=== PATIENT | male | born 1985 | race Caucasian/White ===

== ENCOUNTER 2020-05-12 22:08 | Inpatient (IN) | payer OTHER, SELFPAY ==
[2020-05-13 01:32] VITALS: BMI 42.4
[2020-05-13] MEDS: Piperacillin/Tazobactam 4.5 GM in Sodium Chloride 0.9% 100 ML IVPB SCH ×3 (04:01→20:21)
[2020-05-13] MEDS ORDERED: Ondansetron PF 4 MG/2 ML Vial IVP PRN (04:03)
[2020-05-13] MEDS ORDERED: Ondansetron ODT 4 MG TAB PO PRN (04:03)
--- NOTE | 2020-05-13 04:16 | PDOC.HHP ---
Hospitalist HPI - History of Present Illness Right leg wound History of Present Illness: This is a 35-year-old male patient that history of diabetes mellitus with neuropathy and hypertension who was transferred from [facility] on account of diabetic foot with osteomyelitis on the right He notes having had chronic wound on the plantar surface of his right foot for the past couple of weeks however couple of days ago he noted one on the dorsum of his foot. This led him to go to the ED at [place] for further evaluation. Over the x-ray of his foot was concerning for osteomyelitis and cellulitis involving the fifth digit on the right. Also concern for septic joint involving the fifth metacarpal phalangeal joint space. There was also aeration destruction and subluxation of the fifth metacarpal phalangeal joint space. At the outside facility he was noted to be febrile, tachypneic and tachycardic. He was started on clindamycin vancomycin and cefepime prior to transfer here for higher level care. He also received 2 L normal saline. His labs showed WBC of 13.8, hemoglobin 13.3, platelets 550, sodium 135, creatinine 0.81, CRP 7.23. On presentation here he was slightly hypotensive with BP of 163/105, pulse 96, respiratory rate 18, saturation 99% on room air. On direct questioning he denies any cough chest pain shortness of breath abdominal pain dysuria frequency. He denies any pain in his right lower extremity. Hospitalist ROS - Review of Systems Constitutional: denies: fever, chills, sweats Eyes: denies: pain, vision change, conjunctivae inflammation Respiratory: denies: cough, shortness of breath, hemoptysis Cardiovascular: denies: chest pain, palpitations, orthopnea Gastrointestinal: denies: nausea, vomiting, abdominal pain, diarrhea Neurological: denies: weakness, incoordination All other systems reviewed; all pertinent +/- noted in HPI/Subj - Medication Medications: Active Medications Generic Name Dose Route Start Last Admin Trade Name Freq PRN Reason Stop Dose Admin Piperacillin Sod/Tazobactam 100 mls @ 200 mls/hr 05/13/20 04:00 05/13/20 04:01 Sod 4.5 gm/ Sodium Chloride IVPB 100 mls 0400,1200,2000 PAGE Administration Medications: Refer to ambulatory list. Allergies: No known drug allergies Hospitalist History - Past Medical History Other Medical History: Diabetes mellitus, hypertension - Past Surgical History Past Surgical History: reports: no pertinent history - Family History Family History: reports: diabetes mellitus - Social History Smoking Status: Never smoker Alcohol: reports: Occassional Living Situation: With Family - Exam General Appearance: awake alert General - other findings: Severely obese Eye: PERRL ENT: normocephalic atraumatic Heart: RRR, no murmur, no gallops, no rubs Respiratory: CTAB, no wheezes, no rales Extremities: no cyanosis, no clubbing, no edema Extremities - other findings: Right foot wound dressed. Neurological: cranial nerve grossly intact, no focal deficits Musculoskeletal: normal tone, no muscle wasting Psychiatric: normal affect, normal behavior, A&O x 3 Hospitalist H&P A/P - Plan Plan: This is a 35-year-old male patient with a history of diabetes mellitus and hypertension presenting with right diabetic foot with osteomyelitis/septic arthritis Diabetic foot ulcer Cover on Vanco and Zosyn for now Follow-up on cultures. Osteomyelitis of left foot. Continue antibiotics as above. ID consult Surgery consult Continue monitoring.Follow-up on cultures. Diabetes mellitus Standard correctional dose. Monitor glucose. Hypertension Resume home medications once verified. Obesity CODE STATUSfull code DVT prophylaxislow
[2020-05-13 05:21] LABS: SARS-CoV-2 MS2 Positive; SARS-CoV-2 N Gene Negative; SARS-CoV-2 S Gene Negative; SARS-CoV-2 by NAA Not Detected (NotDetected); SARS-CoV-2 orf1ab Negative
[2020-05-13] MEDS ORDERED: Enoxaparin Sodium 40 MG/0.4 ML SYRINGE SC SCH (09:00)
[2020-05-13] MEDS ORDERED: Vancomycin 1.5 GRAM/300 ML BAG 1.5 GM in Premix Bag 1 BAG IVPB SCH (09:00)
[2020-05-13] MEDS: Enoxaparin Sodium 40 MG/0.4 ML SYRINGE SC SCH (10:17)
[2020-05-13] MEDS ORDERED: Dextrose 50% Abboject 50 ML SYRINGE SLOW IVP PRN (16:04)
[2020-05-13] MEDS ORDERED: Dextrose 5% in Water 1,000 ML IV PRN (16:04)
[2020-05-13] MEDS: HYDROcodone/Acetaminophen 7.5/325 mg Tablet PO PRN (16:06)
--- NOTE | 2020-05-13 16:06 | PDOC.HOSPP ---
- Subjective Encounter Date: 05/13/20 Encounter Time: 11:30 Subjective: no pain in his foot, feels better - Objective Vital Signs & Weight: Vital Signs (12 hours) Temp Pulse Resp BP Pulse Ox 05/13/20 15:08 98.4 F 108 H 15 180/112 H 99 05/13/20 15:00 98.3 F 92 20 143/92 H 99 05/13/20 11:12 98.4 F 92 15 148/91 H 99 05/13/20 08:00 99 05/13/20 07:38 98.2 F 79 14 146/91 H 100 05/13/20 04:26 98.1 F 77 21 H 137/85 98 Weight Admit Weight 313 lb 0.896 oz Weight 313 lb 0.896 oz I&O: 05/12/20 05/13/20 05/14/20 06:59 06:59 06:59 Intake Total 600 Balance 600 Hospitalist ROS - Medication Medications: Active Medications Generic Name Dose Route Start Last Admin Trade Name Freq PRN Reason Stop Dose Admin Enoxaparin Sodium 40 mg 05/13/20 09:00 05/13/20 10:17 Enoxaparin Sodium 40 Mg/0.4 Ml Syringe SC 40 mg 0900 PAGE Administration Piperacillin Sod/Tazobactam 100 mls @ 200 mls/hr 05/13/20 04:00 05/13/20 13:00 Sod 4.5 gm/ Sodium Chloride IVPB 100 mls 0400,1200,2000 PAGE Administration Vancomycin HCl 2 gm/ Sodium 500 mls @ 250 mls/hr 05/13/20 06:00 05/13/20 14:55 Chloride IVPB 500 mls Q8HR PAGE Administration - Exam General Appearance: awake alert Eye: PERRL, anicteric sclera ENT: no oropharyngeal lesions, moist mucosa Neck: supple, no JVD Heart: RRR, no murmur Respiratory: no wheezes, no rales Gastrointestinal: soft, non-tender, non-distended, normal bowel sounds Extremities: no cyanosis Extremities - other findings: right forefoot in dressing, has edema++ Neurological: cranial nerve grossly intact, no focal deficits Psychiatric: normal affect, A&O x 3 Hosp A/P (1) Foot osteomyelitis, right Code(s): M86.9 - OSTEOMYELITIS, UNSPECIFIED Status: Acute Qualifiers: Osteomyelitis type: other acute Qualified Code(s): M86.171 - Other acute osteomyelitis, right ankle and foot (2) DM type 2 (diabetes mellitus, type 2) Status: Chronic Qualifiers: 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
--- NOTE | 2020-05-13 16:33 | CON ---
DATE OF CONSULTATION: 05/12/2020 CONSULTING PHYSICIAN: Sarbjit Covarrubias MD REASON FOR CONSULTATION: Diabetic foot ulcer with osteomyelitis. HISTORY OF PRESENT ILLNESS: The patient is a 35-year-old diabetic, morbidly obese, white male. He has a history of an ulcer on the plantar aspect of his foot over the past 6 months. Apparently, he has been treating this himself with dressing changes. He has not seen a physician regarding this. His primary care physician is Dr. Banuelos in [place], who else treat his diabetes, but he does not believe that she has been involved in the care of his foot. A couple of weeks ago, he noted an ulcer on the dorsal aspect of the right foot and has had progressive swelling. He presented to the emergency room in [place] for this yesterday. X-rays were obtained, revealing obvious osteomyelitis involving the head of the 5th metatarsal with destruction of the bone. He was apparently tachycardic upon arrival to the emergency room. He was given antibiotics. Cultures were obtained of the wound apparently, and I am consulted for further management. He is currently on vancomycin and piperacillin. He acknowledges that he has diabetic neuropathy, but wears closed toe shoes and is continued to do so even while he has had his ulcer. His last hemoglobin A1c that was recorded was 10.9 in 10/2019. At the time that the current hospitalist saw the patient this morning at about 11 o'clock, he was in the process of eating a late breakfast. He has therefore had solid food today and is therefore not a candidate for surgery right now. PAST MEDICAL HISTORY: 1. Morbid obesity. 2. Diabetes mellitus. 3. Hypertension. PAST SURGICAL HISTORY: None. MEDICATIONS: 1. Allopurinol. 2. Metformin. 3. He tells me that he is hypertensive, but takes no medication for this. ALLERGIES: NO KNOWN DRUG ALLERGIES. PERSONAL AND SOCIAL HISTORY: He is not and has no children. 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 He does not smoke. Drinks alcohol occasionally. He lives in his own home next to his parents' house. REVIEW OF SYSTEMS: Otherwise unremarkable. FAMILY HISTORY: Noncontributory. PHYSICAL EXAMINATION: VITAL SIGNS: His current temperature is 98.4, pulse 92, and blood pressure 140/91. GENERAL: He is a well-developed, well-nourished, morbidly obese white male, resting in bed, in no acute distress. He is alert and oriented x3. HEAD, EYES, EARS, NOSE, AND THROAT: Unremarkable. NECK: Supple without mass or tenderness. LUNGS: Clear to auscultation throughout. CARDIAC: Regular rate and rhythm without murmur. ABDOMEN: Obese, but soft and nontender. EXTREMITIES: He has palpable femoral pulses. Examination is focused on his right foot. He has a penetrating ulcer on the dorsum of the lateral aspect of his right foot, immediately overlying the 5th MTP joint. This was probed with a Q-tip, I am easily able to palpate the destructed bone underlying this. Purulence was expressed easily. There was surrounding cellulitis and swelling. LABORATORY DATA: Labs were obtained yesterday at 5:00 pm. He has minor electrolyte abnormalities. His glucose was 190. His albumin is 4.3. CBC showed a white blood cell count of 13.8 with a hemoglobin of 13.6. His drug screen was negative and his COVID test was negative. ASSESSMENT: The patient with poorly controlled diabetes mellitus, who has obvious osteomyelitis of the right 5th metatarsal and the proximal phalanx. Given the degree of destruction, he will clearly require surgery to remove this. This will be in the form of an extended ray amputation of the right foot. There is an underlying ulcer on the plantar aspect that will require debridement and excision as well as the dorsal ulcer. The wound will be left open to heal by secondary intention. Until surgery, he will continue on IV antibiotics with wound care. Job ID: [id number]
[2020-05-13] MEDS: metFORMIN 500 MG TAB PO SCH (20:22)
[2020-05-13 21:30] LABS: Vancomycin, Trough 13.8 ug/mL
[2020-05-13] MEDS: HumaLOG 300 UNITS/3 ML VIAL SC PRN (21:31)
[2020-05-14] MEDS: Piperacillin/Tazobactam 4.5 GM in Sodium Chloride 0.9% 100 ML IVPB SCH ×3 (03:25→20:30)
[2020-05-14] MEDS: HumaLOG 300 UNITS/3 ML VIAL SC PRN ×2 (05:47→20:48)
[2020-05-14 06:00] LABS: #Eosinphils 0.5 thou/uL (0.0-0.7); #Lymphocytes 1.6 thou/uL (1.20-3.40); #Monocytes 0.6 thou/uL (0.11-0.59); #Neutrophils 4.6 thou/uL (1.40-6.50); %Basophils 0.3 % (0.0-1.0); %Lymphocytes 21.6 % (21.0-51.0); %Monocytes 8.2 % (0.0-10.0); %Neutrophils 62.9 % (42.0-75.0); Hemoglobin 12.1 g/dL (14.0-18.0); Mean Corpuscular Hemoglobin 27.6 pg (27.0-31.0); Mean Corpuscular Volume 81.2 fL (78.0-98.0); Mean Platelet Volume 6.3 fL (7.4-10.4); Platelet Count 479 thou/uL (130-400); White Blood Cell (WBC) Count 7.4 thou/uL (4.8-10.8)
[2020-05-14 06:04] LABS: Hemoglobin A1c 8.8 % (4.0-6.0)
[2020-05-14 06:19] LABS: Anion Gap 14 mmol/L (10-20); BUN (Urea Nitrogen) 7 mg/dL (8.9-20.6); Calc. Creatinine Clearance 289 mL/min (70-130); Calcium 8.5 mg/dL (7.8-10.44); Carbon Dioxide 24 mmol/L (22-29); Chloride 102 mmol/L (98-107); Glucose 189 mg/dL (70-105); Potassium 4.1 mmol/L (3.5-5.1); Sodium 136 mmol/L (136-145)
[2020-05-14] MEDS: Allopurinol 100 MG TAB PO SCH (08:27)
[2020-05-14] MEDS ORDERED: PROPOFOL 200 MG/20 ML VIAL ONE (11:52)
[2020-05-14] MEDS: Enoxaparin Sodium 40 MG/0.4 ML SYRINGE SC SCH (11:53)
[2020-05-14] MEDS: metFORMIN 500 MG TAB PO SCH ×2 (11:54→20:31)
--- NOTE | 2020-05-14 14:10 | PDOC.HOSPP ---
- Subjective Encounter Date: 05/14/20 Encounter Time: 11:00 Subjective: is npo for surgery this am feels better, has no complaints - Objective Vital Signs & Weight: Vital Signs (12 hours) Temp Pulse Resp BP Pulse Ox 05/14/20 11:04 98.5 F 90 20 182/120 H 99 05/14/20 07:17 98.3 F 82 20 163/100 H 100 05/14/20 04:44 98.0 F 82 19 156/100 H 99 Weight Admit Weight 313 lb 0.896 oz Weight 313 lb 0.896 oz I&O: 05/13/20 05/14/20 05/15/20 06:59 06:59 06:59 Intake Total 600 1650 Balance 600 1650 Result Diagrams: 05/14/20 05:33 05/14/20 05:33 Additional Labs: Accuchecks 05/14/20 05/14/20 05/13/20 11:08 05:30 20:48 POC Glucose 160 H 192 H 247 H Hospitalist ROS - Medication Medications: Active Medications Generic Name Dose Route Start Last Admin Trade Name Freq PRN Reason Stop Dose Admin Hydrocodone Bitart/Acetaminophen 1 tab 05/13/20 15:39 05/13/20 16:06 Hydrocodone/Acetaminophen 7.5/325 Mg Tablet PO 1 tab Q4H PRN Administration Mild Pain (1-3) Allopurinol 100 mg 05/14/20 09:00 05/14/20 08:27 Allopurinol 100 Mg Tab PO 100 mg DAILY PAGE Administration Enoxaparin Sodium 40 mg 05/13/20 09:00 05/14/20 11:53 Enoxaparin Sodium 40 Mg/0.4 Ml Syringe SC Not Given 09 PAGE Piperacillin Sod/Tazobactam 100 mls @ 200 mls/hr 05/13/20 04:00 05/14/20 12:08 Sod 4.5 gm/ Sodium Chloride IVPB 100 mls 0400,1200,2000 PAGE Administration Vancomycin HCl 2 gm/ Sodium 500 mls @ 250 mls/hr 05/13/20 06:00 05/14/20 05:47 Chloride IVPB 500 mls Q8HR PAGE Administration Insulin Human Lispro 0 units 05/13/20 16:04 05/14/20 05:47 Humalog 300 Units/3 Ml Vial SC 2 unit .MODERATE SLIDING SC PRN Administration Moderate Correctional Scale Insulin Human Lispro 0 units 05/13/20 16:04 05/13/20 21:31 Humalog 300 Units/3 Ml Vial SC 2 unit .BEDTIME SLIDING SC PRN Administration Bedtime Correctional Scale Metformin HCl 1,000 mg 05/13/20 21:00 05/14/20 11:54 Metformin 500 Mg Tab PO Not Given BID PAGE - Exam General Appearance: awake alert Eye: PERRL, anicteric sclera ENT: no oropharyngeal lesions, moist mucosa Neck: supple, no JVD Heart: RRR, no murmur Respiratory: no wheezes, no rales Gastrointestinal: soft, non-tender, non-distended, normal bowel sounds Extremities - other findings: right foot edema+, forefoot in dressing Neurological: cranial nerve grossly intact, no focal deficits Psychiatric: normal affect, A&O x 3 Hosp A/P (1) Foot osteomyelitis, right Code(s): M86.9 - OSTEOMYELITIS, UNSPECIFIED Status: Acute Qualifiers: Osteomyelitis type: other acute Qualified Code(s): M86.171 - Other acute osteomyelitis, right ankle and foot (2) DM type 2 (diabetes mellitus, type 2) Status: Chronic Qualifiers: 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
[2020-05-14] MEDS ORDERED: Hydrochlorothiazide 25 MG TAB PO SCH (15:15)
[2020-05-14] MEDS ORDERED: NIFEdipine XL 30 MG TAB PO SCH (15:15)
[2020-05-14] MEDS ORDERED: Bupivacaine 0.25% HCL 30 ML VIAL ONE (16:05)
[2020-05-14] MEDS ORDERED: EPINEPHrine 1 MG/10 ML Abboject SYRINGE ONE (16:05)
[2020-05-14] MEDS ORDERED: EPINEPHrine 1 MG/ML AMP ONE (16:06)
[2020-05-14] MEDS ORDERED: Midazolam HCl 2 mg/2 ml Vial ONE (16:07)
[2020-05-14] MEDS ORDERED: Fentanyl 100 MCG/2 ML VIAL ONE ×2 (16:07→17:12)
[2020-05-14] MEDS ORDERED: Ondansetron HCl/PF 4 MG/2 ML Vial IVP PRN (17:04)
[2020-05-14] MEDS ORDERED: Promethazine HCl 25 MG/ML VIAL IM PRN (17:04)
[2020-05-14] MEDS ORDERED: Promethazine HCl 25 MG/ML VIAL SLOW IVP PRN (17:04)
[2020-05-14] MEDS: Metoprolol Tartrate 25 MG TAB PO SCH (20:31)
[2020-05-14] MEDS: HYDROcodone/Acetaminophen 7.5/325 mg Tablet PO PRN (20:45)
[2020-05-14 21:29] LABS: Vancomycin, Trough 29.1 ug/mL
[2020-05-15] MEDS: HYDROcodone/Acetaminophen 7.5/325 mg Tablet PO PRN ×4 (03:46→20:51)
[2020-05-15] MEDS: Piperacillin/Tazobactam 4.5 GM in Sodium Chloride 0.9% 100 ML IVPB SCH ×3 (03:46→20:51)
[2020-05-15 05:23] LABS: #Basophils 0.1 thou/uL (0.0-0.2); #Eosinphils 0.5 thou/uL (0.0-0.7); #Lymphocytes 2.1 thou/uL (1.20-3.40); #Monocytes 0.9 thou/uL (0.11-0.59); #Neutrophils 6.9 thou/uL (1.40-6.50); %Basophils 0.5 % (0.0-1.0); %Eosinophils 4.4 % (0.0-10.0); %Lymphocytes 20.4 % (21.0-51.0); %Monocytes 8.5 % (0.0-10.0); %Neutrophils 66.1 % (42.0-75.0); Mean Corpuscular HGB CONC 33.2 g/dL (32.0-36.0); Mean Corpuscular Hemoglobin 26.8 pg (27.0-31.0); Mean Corpuscular Volume 80.8 fL (78.0-98.0); Mean Platelet Volume 6.2 fL (7.4-10.4); Platelet Count 562 thou/uL (130-400); Red Blood Cell (RBC) Count 4.45 mill/uL (4.70-6.10); White Blood Cell (WBC) Count 10.4 thou/uL (4.8-10.8)
[2020-05-15 05:39] LABS: Vancomycin, Trough 10.5 ug/mL
[2020-05-15] MEDS: HumaLOG 300 UNITS/3 ML VIAL SC PRN (06:09)
[2020-05-15] MEDS: NIFEdipine XL 30 MG TAB PO SCH (08:00)
[2020-05-15] MEDS: Allopurinol 100 MG TAB PO SCH (08:01)
[2020-05-15] MEDS: metFORMIN 500 MG TAB PO SCH ×2 (08:01→20:51)
[2020-05-15] MEDS: Metoprolol Tartrate 25 MG TAB PO SCH ×2 (08:02→20:51)
[2020-05-15] MEDS: Hydrochlorothiazide 25 MG TAB PO SCH (08:02)
[2020-05-15] MEDS: Enoxaparin Sodium 40 MG/0.4 ML SYRINGE SC SCH (08:02)
--- NOTE | 2020-05-15 13:39 | PDOC.HOSPP ---
- Subjective Encounter Date: 05/15/20 Encounter Time: 11:15 Subjective: no pain in his foot, feels better - Objective Vital Signs & Weight: Vital Signs (12 hours) Temp Pulse Resp BP Pulse Ox 05/15/20 11:12 98.4 F 78 18 148/84 H 96 05/15/20 08:00 73 05/15/20 07:05 98.0 F 73 18 157/94 H 97 05/15/20 03:40 98.1 F 82 19 149/88 H 98 Weight Admit Weight 313 lb 0.896 oz Weight 313 lb 0.896 oz I&O: 05/14/20 05/15/20 05/16/20 06:59 06:59 06:59 Intake Total 1650 2650 Output Total 2600 Balance 1650 50 Result Diagrams: 05/15/20 05:09 05/14/20 05:33 Additional Labs: Accuchecks 05/15/20 05/15/20 05/14/20 11:15 05:32 15:24 POC Glucose 213 H 214 H 142 H Hospitalist ROS - Medication Medications: Active Medications Generic Name Dose Route Start Last Admin Trade Name Freq PRN Reason Stop Dose Admin Hydrocodone Bitart/Acetaminophen 1 tab 05/13/20 15:39 05/15/20 08:00 Hydrocodone/Acetaminophen 7.5/325 Mg Tablet PO 1 tab Q4H PRN Administration Mild Pain (1-3) Allopurinol 100 mg 05/14/20 09:00 05/15/20 08:01 Allopurinol 100 Mg Tab PO 100 mg DAILY PAGE Administration Enoxaparin Sodium 40 mg 05/13/20 09:00 05/15/20 08:02 Enoxaparin Sodium 40 Mg/0.4 Ml Syringe SC 40 mg 09 PAGE Administration Hydrochlorothiazide 25 mg 05/15/20 09:00 05/15/20 08:02 Hydrochlorothiazide 25 Mg Tab PO 25 mg DAILY PAGE Administration Piperacillin Sod/Tazobactam 100 mls @ 200 mls/hr 05/13/20 04:00 05/15/20 03:46 Sod 4.5 gm/ Sodium Chloride IVPB 100 mls 0400,1200,2000 PAGE Administration Vancomycin HCl 2 gm/ Sodium 500 mls @ 250 mls/hr 05/15/20 06:00 05/15/20 06:09 Chloride IVPB 500 mls Q8HR PAGE Administration Insulin Human Lispro 0 units 05/13/20 16:04 05/15/20 06:09 Humalog 300 Units/3 Ml Vial SC 4 unit .MODERATE SLIDING SC PRN Administration Moderate Correctional Scale Insulin Human Lispro 0 units 05/13/20 16:04 05/14/20 20:48 Humalog 300 Units/3 Ml Vial SC 2 unit .BEDTIME SLIDING SC PRN Administration Bedtime Correctional Scale Metformin HCl 1,000 mg 05/13/20 21:00 05/15/20 08:01 Metformin 500 Mg Tab PO 1,000 mg BID PAGE Administration Metoprolol Tartrate 25 mg 05/14/20 21:00 05/15/20 08:02 Metoprolol Tartrate 25 Mg Tab PO 25 mg BID PAGE Administration Nifedipine 30 mg 05/15/20 09:00 05/15/20 08:00 Nifedipine Xl 30 Mg Tab PO 30 mg DAILY PAGE Administration - Exam General Appearance: awake alert Eye: PERRL, anicteric sclera ENT: no oropharyngeal lesions, moist mucosa Neck: supple, no JVD Heart: RRR, no murmur Respiratory: no wheezes, no rales Gastrointestinal: soft, non-tender, non-distended, normal bowel sounds Extremities - other findings: right foot in dressing Neurological: cranial nerve grossly intact, no focal deficits Psychiatric: normal affect, A&O x 3 Hosp A/P (1) Foot osteomyelitis, right Code(s): M86.9 - OSTEOMYELITIS, UNSPECIFIED Status: Acute Qualifiers: Osteomyelitis type: other acute Qualified Code(s): M86.171 - Other acute osteomyelitis, right ankle and foot (2) DM type 2 (diabetes mellitus, type 2) Status: Chronic Qualifiers: 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: without termite treater helper use Diabetes mellitus complication status: with hyperglycemia Qualified Code(s): E11.65 - Type 2 diabetes mellitus with hyperglycemia (3) Obesity Code(s): E66.9 - OBESITY, UNSPECIFIED Status: Chronic Qualifiers: Obesity classification: adult class 3 (BMI >= 40) Body mass index: BMI 40.0-44.9 (4) HTN (hypertension) Code(s): I10 - ESSENTIAL (PRIMARY) HYPERTENSION Status: Chronic Qualifiers: Hypertension type: essential hypertension Qualified Code(s): I10 - Essential (primary) hypertension - Plan is on vanc and zosyn, home dose metformin 1g bid with coverage, will add glipizide 5mg bid is s/p ray amp of 5th toe and metatarsal 05/14/20 add hctz, procardia xl, cozaar and lopressor for htn strict 1800 kcal ada diet continue wound care, elevation of right leg to reduce edema hemostable no cultures were obtained, likely augmentin bid for dc plan x 10 days
--- NOTE | 2020-05-15 17:47 | CON ---
DATE OF CONSULTATION: 05/15/2020 REASON FOR CONSULTATION: Right foot infection. HISTORY OF PRESENT ILLNESS: A 35-year-old with history of type 2 diabetes and chronic ulcer in the right lateral forefoot for the past few weeks, measuring about 2.5 x 1 cm. He developed worsening inflammatory changes with swelling and pain, and on arrival, he was hypertensive and tachycardic with a temperature of 100.8 and O2 saturations were 90%. The exam showed normal lungs and heart exam except for tachycardia and there was evidence of neuropathy in lower extremities and swelling of the right foot, a large ulcer present in the dorsal aspect of the foot and there was exposed bone at the base of this ulcer. Also, there was an ulceration in the plantar aspect of the foot around the 5th metatarsal skin. Other findings included a white cell count 7.4, hemoglobin 12, and platelets 479. His creatinine was 0.73. SARS-CoV PCR negative. There was a chest x-ray, which showed no infiltrates. A foot x-ray on admission with subcutaneous emphysema in 5th digit erosion at the 5th metacarpophalangeal joint space. The patient underwent amputation today. Dr. Wood was the consulting surgeon. Currently, Mr. Sutton is feeling better. He denies any headaches, visual symptoms, sore throat, odynophagia, or dysphagia. Mild cough. No back pain. No abdominal pain or diarrhea. Voiding without difficulty. No bleeding. PAST MEDICAL HISTORY: 1. Type 2 diabetes. 2. Obesity. 3. Neuropathy. 4. Gout. SOCIAL HISTORY: Lives in [place]. Drinks occasionally. Never smoker. ALLERGIES: NONE. CURRENT MEDICATIONS: 1. Allopurinol. 2. Glucagon. 3. Zosyn. 4. Vancomycin. FAMILY HISTORY: Type 2 diabetes. PHYSICAL EXAMINATION: VITAL SIGNS: Afebrile since admission, BP 140/72, heart rate 76, respiratory rate 18, and O2 saturation 98 on room air. SKIN: The area of inflammatory change at the 5th digit and metacarpophalangeal site with erythema extending towards the dorsal aspect of the forefoot and midfoot region with ulceration around the lateral aspect in the volar aspect of this area. Today, the wound shows the area of amputation is white, gaping area of wound with the missing toe in the metatarsophalangeal joint amputation. No lymphadenopathy. HEENT: Ocular movements conjugate. Oral cavity normal. Numerous teeth in place in fairly good shape. NECK: Supple. LUNGS: Symmetric, clear breath sounds. HEART: S1 and S2. Regular rate. ABDOMEN: Soft, not distended or tender. No ascites. No bladder distention. EXTREMITIES: No joint inflammatory activity outside the involved area. Pulses are 1+ in dorsalis pedis, actually more like 2+. Popliteals are 1+. Cap refill is normal. NEUROLOGIC: Cognitive function appears to be intact. Neuro examination otherwise nonfocal. LABORATORY STUDIES: Followup WBC 10.4, hemoglobin 12, and platelets 562. Microbiology with group B strep and Staphylococcus aureus with pending susceptibility results, this from 2 different samples. ASSESSMENT: 1. Type 2 diabetes. 2. Neuropathy with chronic ulcer in the right lateral forefoot, status post amputation at the 5th ray with the organisms as described above. Assuming adequate margin and in the face of adequate blood supply, he would be eligible for discharge on oral antimicrobial therapy, hoping that the Staphylococcus aureus is not methicillin-resistant. In that case, a combination of Keflex and rifampin for approximately 3 weeks or longer depending on granulation of the site. If MRSA is identified, then that would complicate things a little bit and the regimen would depend on the susceptibility to quinolones. In that case, a combination of levofloxacin and rifampin would be the chosen regimen. If it is not susceptible and it is MRSA, then the options for management would be more limited and may require IV access for outpatient therapy. Job ID: [id number] [facility]
[2020-05-15] MEDS: glipiZIDE 5 MG TAB PO SCH (18:07)
[2020-05-16] MEDS: HYDROcodone/Acetaminophen 7.5/325 mg Tablet PO PRN ×2 (03:04→19:49)
[2020-05-16] MEDS: Piperacillin/Tazobactam 4.5 GM in Sodium Chloride 0.9% 100 ML IVPB SCH ×3 (03:05→19:49)
[2020-05-16 05:58] LABS: Anion Gap 17 mmol/L (10-20); BUN (Urea Nitrogen) 12 mg/dL (8.9-20.6); Calc. Creatinine Clearance 207 mL/min (70-130); Calcium 9.6 mg/dL (7.8-10.44); Carbon Dioxide 26 mmol/L (22-29); Chloride 96 mmol/L (98-107); Glucose 189 mg/dL (70-105); Potassium 3.8 mmol/L (3.5-5.1); Sodium 135 mmol/L (136-145); Vancomycin, Trough 20.7 ug/mL
[2020-05-16] MEDS: glipiZIDE 5 MG TAB PO SCH ×2 (06:26→16:25)
[2020-05-16] MEDS: HumaLOG 300 UNITS/3 ML VIAL SC PRN ×2 (06:26→16:25)
[2020-05-16] MEDS: NIFEdipine XL 30 MG TAB PO SCH (09:19)
[2020-05-16] MEDS: Enoxaparin Sodium 40 MG/0.4 ML SYRINGE SC SCH (09:19)
[2020-05-16] MEDS: Hydrochlorothiazide 25 MG TAB PO SCH (09:20)
[2020-05-16] MEDS: Losartan 25 MG TAB PO SCH (09:20)
[2020-05-16] MEDS: Metoprolol Tartrate 25 MG TAB PO SCH ×2 (09:20→19:49)
[2020-05-16] MEDS: metFORMIN 500 MG TAB PO SCH ×2 (09:20→19:49)
[2020-05-16] MEDS: Allopurinol 100 MG TAB PO SCH (09:20)
[2020-05-16] MEDS ORDERED: Vancomycin HCl 1.75 GM in Sodium Chloride 0.9% 500 ML IVPB SCH (14:00)
--- NOTE | 2020-05-16 14:21 | PDOC.HOSPP ---
- Subjective Encounter Date: 05/16/20 Encounter Time: 11:20 Subjective: feels good, has wound vac placed to his foot - Objective Vital Signs & Weight: Vital Signs (12 hours) Temp Pulse Resp BP BP Pulse Ox 05/16/20 11:37 98.4 F 81 18 148/92 H 97 05/16/20 09:19 72 126/83 05/16/20 08:00 98 05/16/20 07:28 97.9 F 72 16 126/83 99 05/16/20 05:44 97.8 F 92 19 123/74 96 Weight Admit Weight 313 lb 0.896 oz Weight 313 lb 0.896 oz I&O: 05/15/20 05/16/20 05/17/20 06:59 06:59 06:59 Intake Total 2650 3200 Output Total 2600 Balance 50 3200 Result Diagrams: 05/15/20 05:09 05/16/20 05:17 Additional Labs: Accuchecks 05/16/20 05/15/20 05/14/20 05:37 16:11 20:48 POC Glucose 180 H 143 H 211 H Hospitalist ROS - Medication Medications: Active Medications Generic Name Dose Route Start Last Admin Trade Name Freq PRN Reason Stop Dose Admin Hydrocodone Bitart/Acetaminophen 1 tab 05/13/20 15:39 05/16/20 03:04 Hydrocodone/Acetaminophen 7.5/325 Mg Tablet PO 1 tab Q4H PRN Administration Mild Pain (1-3) Allopurinol 100 mg 05/14/20 09:00 05/16/20 09:20 Allopurinol 100 Mg Tab PO 100 mg DAILY PAGE Administration Enoxaparin Sodium 40 mg 05/13/20 09:00 05/16/20 09:19 Enoxaparin Sodium 40 Mg/0.4 Ml Syringe SC 40 mg 09 PAGE Administration Glipizide 5 mg 05/15/20 16:30 05/16/20 06:26 Glipizide 5 Mg Tab PO 5 mg BID-AC PAGE Administration Hydrochlorothiazide 25 mg 05/15/20 09:00 05/16/20 09:20 Hydrochlorothiazide 25 Mg Tab PO 25 mg DAILY PAGE Administration Piperacillin Sod/Tazobactam 100 mls @ 200 mls/hr 05/13/20 04:00 05/16/20 13:32 Sod 4.5 gm/ Sodium Chloride IVPB 100 mls 0400,1200,2000 PAGE Administration Insulin Human Lispro 0 units 05/13/20 16:04 05/16/20 06:26 Humalog 300 Units/3 Ml Vial SC 2 unit .MODERATE SLIDING SC PRN Administration Moderate Correctional Scale Insulin Human Lispro 0 units 05/13/20 16:04 05/14/20 20:48 Humalog 300 Units/3 Ml Vial SC 2 unit .BEDTIME SLIDING SC PRN Administration Bedtime Correctional Scale Losartan Potassium 50 mg 05/16/20 09:00 05/16/20 09:20 Losartan 25 Mg Tab PO 50 mg DAILY PAGE Administration Metformin HCl 1,000 mg 05/13/20 21:00 05/16/20 09:20 Metformin 500 Mg Tab PO 1,000 mg BID PAGE Administration Metoprolol Tartrate 25 mg 05/14/20 21:00 05/16/20 09:20 Metoprolol Tartrate 25 Mg Tab PO 25 mg BID PAGE Administration Nifedipine 30 mg 05/15/20 09:00 05/16/20 09:19 Nifedipine Xl 30 Mg Tab PO 30 mg DAILY PAGE Administration - Exam General Appearance: awake alert Eye: PERRL, anicteric sclera ENT: no oropharyngeal lesions, moist mucosa Neck: supple, no JVD Heart: RRR, no murmur Respiratory: no wheezes, no rales Gastrointestinal: soft, non-tender, non-distended, normal bowel sounds Extremities - other findings: right foot surg wound in wound vac Neurological: cranial nerve grossly intact, no focal deficits Psychiatric: normal affect, A&O x 3 Hosp A/P (1) Foot osteomyelitis, right Code(s): M86.9 - OSTEOMYELITIS, UNSPECIFIED Status: Acute Qualifiers: Osteomyelitis type: other acute Qualified Code(s): M86.171 - Other acute osteomyelitis, right ankle and foot (2) DM type 2 (diabetes mellitus, type 2) Status: Chronic Qualifiers: Diabetes mellitus manager long term care insulin use: without manager long term care use Diabetes mellitus complication status: with hyperglycemia Qualified Code(s): E11.65 - Type 2 diabetes mellitus with hyperglycemia (3) Obesity Code(s): E66.9 - OBESITY, UNSPECIFIED Status: Chronic Qualifiers: Obesity classification: adult class 3 (BMI >= 40) Body mass index: BMI 40.0-44.9 (4) HTN (hypertension) Code(s): I10 - ESSENTIAL (PRIMARY) HYPERTENSION Status: Chronic Qualifiers: Hypertension type: essential hypertension Qualified Code(s): I10 - Essential (primary) hypertension - Plan is on vanc and zosyn, home dose metformin 1g bid with coverage, plus glipizide 5mg bid is s/p ray amp of 5th toe and metatarsal 05/14/20 on hctz, procardia xl, cozaar and lopressor for htn strict 1800 kcal ada diet continue wound care, elevation of right leg to reduce edema hemostable cultures results and per adv pt to go on keflex and rifampin for 3 weeks will need wound vac/wound care or he can drive to [facility] for wound care (lives 8 miles from hospital)
[2020-05-17] MEDS: HYDROcodone/Acetaminophen 7.5/325 mg Tablet PO PRN ×2 (03:54→20:35)
[2020-05-17] MEDS: Piperacillin/Tazobactam 4.5 GM in Sodium Chloride 0.9% 100 ML IVPB SCH ×3 (03:55→20:32)
[2020-05-17] MEDS: HumaLOG 300 UNITS/3 ML VIAL SC PRN ×3 (06:09→17:13)
[2020-05-17] MEDS: glipiZIDE 5 MG TAB PO SCH ×2 (06:09→17:12)
[2020-05-17] MEDS: Hydrochlorothiazide 25 MG TAB PO SCH (09:19)
[2020-05-17] MEDS: Enoxaparin Sodium 40 MG/0.4 ML SYRINGE SC SCH (09:19)
[2020-05-17] MEDS: Allopurinol 100 MG TAB PO SCH (09:19)
[2020-05-17] MEDS: Losartan 25 MG TAB PO SCH (09:19)
[2020-05-17] MEDS: Metoprolol Tartrate 25 MG TAB PO SCH ×2 (09:19→20:39)
[2020-05-17] MEDS: NIFEdipine XL 30 MG TAB PO SCH (09:25)
[2020-05-17] MEDS: metFORMIN 500 MG TAB PO SCH ×2 (09:25→20:39)
--- NOTE | 2020-05-17 09:42 | PRG ---
DATE OF SERVICE: 05/17/2020 SUBJECTIVE: Mr. Sutton is postoperative day #3 from a right 5th toe ray amputation. He had osteomyelitis of the head of the fifth metatarsal. Wound VAC has been placed and is intact. It apparently has been changed and is due to be changed today. He has worked with Physical Therapy and is ambulating with crutches. He does not yet have a home wound VAC or home health nursing arranged. This will probably be challenging as he is uninsured. He has no complaints. OBJECTIVE: VITAL SIGNS: He is afebrile. Vital signs are normal except he has his baseline hypertension. SKIN: Wound VAC is intact on his right foot. LABORATORY DATA: His electrolytes from yesterday are unremarkable. His blood sugars remain baseline elevated. He has not had a CBC checked in the last couple of days. ASSESSMENT: The patient is stable following ray amputation of right 5th toe. He is due to have his VAC changed today. I will hopefully see the wound with the Wound Care team this morning. Home wound VAC has been ordered and case management is involved. As soon as appropriate wound care can be arranged, he can be discharged at any time. Since all infected tissue was removed, he should not require long-term antibiotics. There is no longer concern for osteomyelitis that needs to be treated. Job ID: [id number]
--- NOTE | 2020-05-17 16:04 | PDOC.HOSPP ---
- Subjective Encounter Date: 05/17/20 Encounter Time: 08:45 Subjective: no new complaints, feels good - Objective Vital Signs & Weight: Vital Signs (12 hours) Temp Pulse Resp BP Pulse Ox 05/17/20 10:30 98.4 F 79 18 153/87 H 97 05/17/20 09:25 70 05/17/20 08:00 99 05/17/20 07:07 97.9 F 70 18 142/92 H 99 Weight Admit Weight 313 lb 0.896 oz Weight 313 lb 0.896 oz I&O: 05/16/20 05/17/20 05/18/20 06:59 06:59 06:59 Intake Total 3200 1050 Output Total 1000 Balance 3200 50 Result Diagrams: 05/15/20 05:09 05/16/20 05:17 Additional Labs: Accuchecks 05/17/20 05/17/20 05/17/20 15:36 10:33 05:13 POC Glucose 173 H 201 H 169 H 05/16/20 05/16/20 20:09 16:19 POC Glucose 166 H 206 H Hospitalist ROS - Medication Medications: Active Medications Generic Name Dose Route Start Last Admin Trade Name Freq PRN Reason Stop Dose Admin Hydrocodone Bitart/Acetaminophen 1 tab 05/13/20 15:39 05/17/20 03:54 Hydrocodone/Acetaminophen 7.5/325 Mg Tablet PO 1 tab Q4H PRN Administration Mild Pain (1-3) Allopurinol 100 mg 05/14/20 09:00 05/17/20 09:19 Allopurinol 100 Mg Tab PO 100 mg DAILY PAGE Administration Enoxaparin Sodium 40 mg 05/13/20 09:00 05/17/20 09:19 Enoxaparin Sodium 40 Mg/0.4 Ml Syringe SC 40 mg 09 PAGE Administration Glipizide 5 mg 05/15/20 16:30 05/17/20 06:09 Glipizide 5 Mg Tab PO 5 mg BID-AC PAGE Administration Hydrochlorothiazide 25 mg 05/15/20 09:00 05/17/20 09:19 Hydrochlorothiazide 25 Mg Tab PO 25 mg DAILY PAGE Administration Piperacillin Sod/Tazobactam 100 mls @ 200 mls/hr 05/13/20 04:00 05/17/20 11:58 Sod 4.5 gm/ Sodium Chloride IVPB 100 mls 0400,1200,2000 PAGE Administration Insulin Human Lispro 0 units 05/13/20 16:04 05/17/20 12:01 Humalog 300 Units/3 Ml Vial SC 4 unit .MODERATE SLIDING SC PRN Administration Moderate Correctional Scale Insulin Human Lispro 0 units 05/13/20 16:04 05/14/20 20:48 Humalog 300 Units/3 Ml Vial SC 2 unit .BEDTIME SLIDING SC PRN Administration Bedtime Correctional Scale Losartan Potassium 50 mg 05/16/20 09:00 05/17/20 09:19 Losartan 25 Mg Tab PO 50 mg DAILY PAGE Administration Metformin HCl 1,000 mg 05/13/20 21:00 05/17/20 09:25 Metformin 500 Mg Tab PO 1,000 mg BID PAGE Administration Metoprolol Tartrate 25 mg 05/14/20 21:00 05/17/20 09:19 Metoprolol Tartrate 25 Mg Tab PO 25 mg BID PAGE Administration Nifedipine 30 mg 05/15/20 09:00 05/17/20 09:25 Nifedipine Xl 30 Mg Tab PO 30 mg DAILY PAGE Administration - Exam General Appearance: awake alert Eye: PERRL, anicteric sclera ENT: no oropharyngeal lesions, moist mucosa Neck: supple, no JVD Heart: RRR, no murmur Respiratory: no wheezes, no rales Gastrointestinal: soft, non-tender, non-distended, normal bowel sounds Extremities: no cyanosis Extremities - other findings: right foot surgical wound in wound vac Neurological: cranial nerve grossly intact, no focal deficits Psychiatric: normal affect, A&O x 3 Hosp A/P (1) Foot osteomyelitis, right Code(s): M86.9 - OSTEOMYELITIS, UNSPECIFIED Status: Acute Qualifiers: Osteomyelitis type: other acute Qualified Code(s): M86.171 - Other acute osteomyelitis, right ankle and foot (2) DM type 2 (diabetes mellitus, type 2) Status: Chronic Qualifiers: Diabetes mellitus nursing home insulin use: without long term care pharmacist use Diabetes me llitus complication status: with hyperglycemia Qualified Code(s): E11.65 - Type 2 diabetes mellitus with hyperglycemia (3) Obesity Code(s): E66.9 - OBESITY, UNSPECIFIED Status: Chronic Qualifiers: Obesity classification: adult class 3 (BMI >= 40) Body mass index: BMI 40.0-44.9 (4) HTN (hypertension) Code(s): I10 - ESSENTIAL (PRIMARY) HYPERTENSION Status: Chronic Qualifiers: Hypertension type: essential hypertension Qualified Code(s): I10 - Essential (primary) hypertension - Plan is on vanc and zosyn, home dose metformin 1g bid with coverage, plus glipizide 5mg bid is s/p ray amp of 5th toe and metatarsal 05/14/20 on hctz, procardia xl, cozaar and lopressor for htn strict 1800 kcal ada diet continue wound care, elevation of right leg to reduce edema hemostable cultures results and per adv pt to go on keflex and rifampin for 3 weeks will need wound vac/wound care or he can drive to [facility] for wound care (lives 8 miles from hospital), awaiting approval, may dc anytime if its arranged.
--- NOTE | 2020-05-17 19:36 | OP ---
DATE OF PROCEDURE: 05/14/2020 PREOPERATIVE DIAGNOSIS: Infected right lateral foot ulcer with fifth metatarsal head osteomyelitis. POSTOPERATIVE DIAGNOSIS: Infected right lateral foot ulcer with fifth metatarsal head osteomyelitis. OPERATION PERFORMED: Right fifth toe ray amputation. ANESTHESIA: General anesthesia with the laryngeal mask airway. INDICATIONS: Patient is a 35-year-old morbidly obese, diabetic white male. He had presented to the hospital with a draining ulcer on the lateral aspect of his foot. This had both a plantar and dorsal component. Purulence was expressed from this. X-rays reveal complete osteolysis of the head of the fifth metatarsal. He is taken to the operating room at this time for ray amputation. DESCRIPTION OF OPERATION: Informed consent was obtained. Patient was taken to the operating room, where general anesthesia was obtained with patient in supine position. The right foot and lower leg were prepped with Betadine, draped in sterile fashion. Local anesthetic was infiltrated around the proximal aspect of the intended amputation site using 0.25% Marcaine with epinephrine. An incision was created to include the fifth toe as well as the ulcer on the plantar and dorsal aspect. Dissection was carried through skin and subcutaneous tissue and down to the fifth metatarsal. Purulent and necrotic tissue were encountered. The specimen was passed off the field. The underlying fifth metatarsal bone was debrided with the rongeur until viable strong normal bone was encountered. All surrounding necrotic and devitalized tissue were also removed with rongeur. Meticulous hemostasis obtained with electrocautery. The wound was irrigated with saline. Dry gauze dressing was placed externally and Kerlix gauze and Milton wrap dressing was applied. There were no complications. The patient tolerated the procedure well, was taken to the recovery room in stable condition. Job ID: [id number]
[2020-05-18] MEDS: Piperacillin/Tazobactam 4.5 GM in Sodium Chloride 0.9% 100 ML IVPB SCH ×2 (03:30→11:56)
[2020-05-18] MEDS: glipiZIDE 5 MG TAB PO SCH (06:27)
[2020-05-18] MEDS: Enoxaparin Sodium 40 MG/0.4 ML SYRINGE SC SCH (08:37)
[2020-05-18] MEDS: metFORMIN 500 MG TAB PO SCH (08:38)
[2020-05-18] MEDS: Hydrochlorothiazide 25 MG TAB PO SCH (08:38)
[2020-05-18] MEDS: Losartan 25 MG TAB PO SCH (08:38)
[2020-05-18] MEDS: Allopurinol 100 MG TAB PO SCH (08:39)
[2020-05-18] MEDS: NIFEdipine XL 30 MG TAB PO SCH (08:39)
[2020-05-18] MEDS: Metoprolol Tartrate 25 MG TAB PO SCH (08:39)
[2020-05-18] MEDS: HumaLOG 300 UNITS/3 ML VIAL SC PRN (11:59)
[2020-05-18 12:51] VITALS: TEMP 98.7
[2020-05-18 16:24] VITALS: BP 172/95
--- NOTE | 2020-05-18 16:59 | DIS ---
DATE OF ADMISSION: 05/12/2020 DATE OF DISCHARGE: 05/18/2020 DISCHARGE DISPOSITION: To home. PRIMARY DISCHARGE DIAGNOSIS: The patient is status post right 5th toe ray amputation for osteomyelitis done on 05/14/[address] Wood. SECONDARY DISCHARGE DIAGNOSES: 1. Hypertension, uncontrolled, which was resolved. 2. Diabetes mellitus, type 2, uncontrolled, which was resolved. 3. Obesity. PROCEDURES DONE DURING HOSPITALIZATION: The patient has had ray amputation of 5th toe on the right foot for osteomyelitis. Right foot x-ray done on admission showed findings of osteomyelitis and cellulitis involving the 5th digit. There is also a presumed septic joint involving 5th metatarsophalangeal joint space. There is erosion, destruction, and subluxation of the 5th metatarsophalangeal joint space. Chest x-ray done showed no acute cardiopulmonary abnormalities. Wound cultures grew Strep agalactiae and Staph aureus. Staphylococcus aureus was resistant to amoxicillin and Zosyn, but sensitive to all other organism. Blood cultures x2, no growth. H and H 12 and 36, platelet count 562, and white count of 10. BUN 12, creatinine 1.0. HbA1c 8.8. CRP 7.23, TSH 1.86. COVID-19 PCR was not detected on 05/13/2020. Urine drug screen was negative. DISCHARGE MEDICATIONS: 1. Allopurinol 100 mg p.o. daily. 2. Losartan 50 mg p.o. daily. 3. Glipizide 5 mg twice daily. 4. Metformin 1000 mg twice daily. 5. Hydrochlorothiazide 25 mg daily. 6. Lopressor 25 mg twice daily. 7. Motrin p.r.n. for pain. 8. Rifampin 300 mg p.o. twice daily for 10 days. 9. Keflex 500 mg p.o. 4 times daily for 10 days. ALLERGIES: NO KNOWN DRUG ALLERGIES. DISCHARGE PLAN: The patient to follow up with his primary care physician, Dr. Richmond in 1 week. He needs to follow up with Dr. Wood in 2 weeks. The patient needs to follow up Wound Care at [facility] in [place] at the earliest. BRIEF COURSE DURING HOSPITALIZATION: The patient initially got admitted on the 8th after being diagnosed with osteomyelitis. He initially went to [facility] where initial workup was done, which showed findings of right 5th toe and metatarsal osteomyelitis. The patient has had a wound on the right 5th toe area for nearly 2 weeks, which has been progressively smoldering with progressive swelling and purulent discharge. He was evaluated by Dr. Wood for General Surgery. The patient had a 5th toe ray amputation done on the right side by Dr. Wood on the . Postop, his wound was placed in wound VAC and surgical shoe. Wound care has been arranged at [facility] closer to his home. Case Management was consulted for above, which has been arranged. His medications were optimized for diabetes and hypertension, both of which were uncontrolled on admission. The patient was also counseled regarding losing weight and healthy eating. He is hemodynamically stable and will be shortly discharged home. Please note, I have seen and examined the patient on the day of discharge. Job ID: [id number]
== END 2020-05-18 16:24 | disposition home or self-care (01) | DRG 617 ==
LOC: SURG B 22:08
PROVIDERS: ADMIT Student in an Organized Health Care Education/Training Program; ATTEND Internal Medicine
PROC: 0Y6X0Z1 Detachment at Right 5th Toe, High, Open Approach (ICD-10-PCS; principal; 2020-05-14)
DX: E11.69 Type 2 diabetes mellitus with other specified complication (principal); E11.52 Type 2 diabetes mellitus with diabetic peripheral angiopathy with gangrene; M86.172 Other acute osteomyelitis, left ankle and foot; Z68.41 Body mass index [BMI] 40.0-44.9, adult; I96 Gangrene, not elsewhere classified; Z16.11 Resistance to penicillins; Z20.822 Contact with and (suspected) exposure to COVID-19; E11.621 Type 2 diabetes mellitus with foot ulcer; I10 Essential (primary) hypertension; L97.529 Non-pressure chronic ulcer of other part of left foot with unspecified severity; E66.01 Morbid (severe) obesity due to excess calories; E11.65 Type 2 diabetes mellitus with hyperglycemia; B95.4 Other streptococcus as the cause of diseases classified elsewhere; B95.62 Methicillin resistant Staphylococcus aureus infection as the cause of diseases classified elsewhere; Z79.84 Long term (current) use of oral hypoglycemic drugs; Z79.899 Other long term (current) drug therapy
CPT/HCPCS: 36415; 36416; 80048; 80202; 83036; 85025; 87635; 88305; 88311; J0171; J1650; J2250; J2543; J2704; J3010; J3370; J3490; J7030; S0020; U0003

== ENCOUNTER 2025-03-16 14:27 | Inpatient (IN) | payer OTHER, SELFPAY ==
[2025-03-16 15:23] LABS: Hematocrit 30.8 % (42.0-52.0); Hemoglobin 10.0 g/dL (14.0-18.0); Mean Corpuscular Hemoglobin 24.7 pg (27.0-31.0); Mean Corpuscular Volume 76.0 fL (78.0-98.0); Platelet Count 523 10x3/uL (130-400); Red Blood Cell (RBC) Count 4.05 mill/uL (4.70-6.10); White Blood Cell (WBC) Count 25.11 10x3/uL (4.8-10.8)
[2025-03-16] MEDS ORDERED: Dextrose 50% Abboject 50 ML SYRINGE SLOW IVP PRN (15:28)
[2025-03-16] MEDS ORDERED: Ondansetron PF 4 MG/2 ML Vial IVP PRN (15:28)
[2025-03-16] MEDS ORDERED: Glucagon 1 MG/ML KIT IM PRN (15:28)
[2025-03-16 15:37] LABS: ALT (SGPT) 18 U/L (Less than 45); AST (SGOT) 62 U/L (11-34); Albumin 1.7 g/dL (3.1-4.5); Alkaline Phosphatase 106 U/L (40-110); Anion Gap 14 mmol/L (10-20); BUN (Urea Nitrogen) 48 mg/dL (8.9-20.6); Bilirubin, Total 0.4 mg/dL (0.3-1.2); Calc. Creatinine Clearance 0 mL/min (70-130); Calcium 9.2 mg/dL (7.8-10.44); Carbon Dioxide 24 mmol/L (22-29); Chloride 92 mmol/L (98-107); Globulin 5.6 g/dL (2.4-3.5); Glucose 276 mg/dL (70-105); Potassium 3.4 mmol/L (3.5-5.1); Sodium 127 mmol/L (136-145)
[2025-03-16 15:47] LABS: Anisocytosis SLIGHT = 6-15 cells HPF (0-5); Burr Cells SLIGHT = 2-5 cells HPF (0-1); Dohle Bodies SLIGHT; Platelet Adequacy Comment Platelets Increased; Smudge Cells 1.0 %; Spherocytes SLIGHT = 1-5 cells HPF (None Seen); Toxic Granulation SLIGHT
[2025-03-16] MEDS ORDERED: Ketorolac Tromethamine 30 MG (1 mL) VIAL ONE (16:32)
[2025-03-16] MEDS: Ketorolac Tromethamine 30 MG (1 mL) VIAL IVP PRN (16:47)
[2025-03-16] MEDS: Clindamycin/D5W 900 MG in Premix 1 BAG IVPB SCH (17:44)
[2025-03-16 18:35] VITALS: BMI 37.5
[2025-03-16] MEDS ORDERED: Vancomycin 2 GM in Sodium Chloride 0.9% 250 ML 300 ML IVPB SCH (21:00)
[2025-03-16] MEDS: VANCOMYCIN 2 GRAM/400 ML Premix BAG IVPB SCH (21:22)
[2025-03-16] MEDS: Rosuvastatin 10 MG TAB PO SCH (21:23)
[2025-03-16] MEDS: Colchicine 0.6 MG TAB PO SCH (21:23)
[2025-03-16] MEDS: Famotidine 20 MG TAB PO SCH (21:23)
[2025-03-17] MEDS: Albumin 25% 25 GM (100 mL) BOT IVPB SCH (05:02)
[2025-03-17 05:43] LABS: Hematocrit 29.7 % (42.0-52.0); Hemoglobin 9.4 g/dL (14.0-18.0); Mean Corpuscular Hemoglobin 24.5 pg (27.0-31.0); Mean Corpuscular Volume 77.3 fL (78.0-98.0); Platelet Count 483 10x3/uL (130-400); Red Blood Cell (RBC) Count 3.84 mill/uL (4.70-6.10); White Blood Cell (WBC) Count 24.45 10x3/uL (4.8-10.8)
[2025-03-17 05:46] LABS: Vancomycin, Random 30.7 ug/mL (See Comment)
[2025-03-17 05:49] LABS: ALT (SGPT) 17 U/L (Less than 45); AST (SGOT) 49 U/L (11-34); Albumin 1.5 g/dL (3.1-4.5); Alkaline Phosphatase 129 U/L (40-110); Anion Gap 12 mmol/L (10-20); BUN (Urea Nitrogen) 48 mg/dL (8.9-20.6); Bilirubin, Total 0.4 mg/dL (0.3-1.2); Calc. Creatinine Clearance 89 mL/min (70-130); Calcium 8.4 mg/dL (7.8-10.44); Carbon Dioxide 21 mmol/L (22-29); Chloride 95 mmol/L (98-107); Globulin 5.0 g/dL (2.4-3.5); Glucose 199 mg/dL (70-105); Potassium 3.2 mmol/L (3.5-5.1); Sodium 125 mmol/L (136-145)
[2025-03-17 06:11] LABS: Microcytosis SLIGHT = 6-15 cells HPF (0-5); Platelet Adequacy Comment Platelets Increased; Polychromasia SLIGHT = 2-3 cells HPF (0-2)
[2025-03-17] MEDS ORDERED: Vancomycin 1.25 GM / NS 250 ML VIAL-2-BAG IVPB SCH (09:00)
[2025-03-17] MEDS: glipiZIDE 5 MG TAB PO SCH (09:26)
[2025-03-17] MEDS: Enoxaparin 40 MG (0.4 mL) SYRINGE SC SCH (09:27)
[2025-03-17] MEDS: Losartan 25 MG TAB PO SCH (09:27)
[2025-03-17] MEDS ORDERED: Glycopyrrolate 0.2 MG/ML 5 ML SYRINGE ONE (12:15)
[2025-03-17] MEDS ORDERED: PHENYLEPHRINE-NS 100 MCG/ML 10 ML SYRINGE ONE (12:15)
[2025-03-17] MEDS ORDERED: PROPOFOL 200 MG/20 ML VIAL ONE (12:29)
[2025-03-17] MEDS ORDERED: Ketamine In 0.9 % NaCl 50 MG/5 ML SYRINGE ONE (12:41)
[2025-03-17] MEDS: HYDROcodone/Acetaminophen 5/325 mg Tablet PO PRN (17:20)
[2025-03-17] MEDS: Vancomycin 1.5 GM / NS 500 ML VIAL-2-BAG IVPB SCH (20:59)
[2025-03-17] MEDS ORDERED: Vancomycin 1.5 GM / NS 500 ML VIAL-2-BAG IVPB SCH (21:00)
[2025-03-17] MEDS ORDERED: Vancomycin 1 GM in Premix 1 BAG IVPB SCH (21:00)
[2025-03-18 05:29] LABS: Hematocrit 28.8 % (42.0-52.0); Hemoglobin 8.9 g/dL (14.0-18.0); Mean Corpuscular Hemoglobin 24.5 pg (27.0-31.0); Mean Corpuscular Volume 79.1 fL (78.0-98.0); Platelet Count 516 10x3/uL (130-400); Red Blood Cell (RBC) Count 3.64 mill/uL (4.70-6.10); White Blood Cell (WBC) Count 20.67 10x3/uL (4.8-10.8)
[2025-03-18 05:33] LABS: Vancomycin, Random 17.2 ug/mL (See Comment)
[2025-03-18 05:39] LABS: Anion Gap 15 mmol/L (10-20); BUN (Urea Nitrogen) 37 mg/dL (8.9-20.6); Calc. Creatinine Clearance 202 mL/min (70-130); Calcium 8.2 mg/dL (7.8-10.44); Carbon Dioxide 19 mmol/L (22-29); Chloride 97 mmol/L (98-107); Glucose 248 mg/dL (70-105); Potassium 3.1 mmol/L (3.5-5.1); Sodium 128 mmol/L (136-145)
[2025-03-18 05:55] LABS: Burr Cells SLIGHT = 2-5 cells HPF (0-1); Microcytosis SLIGHT = 6-15 cells HPF (0-5); Platelet Adequacy Comment Platelets Increased; Smudge Cells 2.0 %
[2025-03-18 10:36] VITALS: BMI 37.5
[2025-03-18] MEDS: Vancomycin 1.5 GM / NS 500 ML VIAL-2-BAG IVPB SCH ×2 (12:00→20:24)
[2025-03-18] MEDS: FLU (Fluarix Triv) 25-26 (6MOS UP)/PF 45 MCG/0.5 ML Syringe IM ONE (13:56)
[2025-03-19 06:38] LABS: Hematocrit 27.5 % (42.0-52.0); Hemoglobin 8.6 g/dL (14.0-18.0); Mean Corpuscular Hemoglobin 24.6 pg (27.0-31.0); Mean Corpuscular Volume 78.6 fL (78.0-98.0); Platelet Count 532 10x3/uL (130-400); Red Blood Cell (RBC) Count 3.50 mill/uL (4.70-6.10); White Blood Cell (WBC) Count 21.09 10x3/uL (4.8-10.8)
[2025-03-19 06:46] LABS: Vancomycin, Random 10.1 ug/mL (See Comment)
[2025-03-19 06:47] LABS: Anion Gap 15 mmol/L (10-20); BUN (Urea Nitrogen) 18 mg/dL (8.9-20.6); Calc. Creatinine Clearance 281 mL/min (70-130); Calcium 8.5 mg/dL (7.8-10.44); Carbon Dioxide 23 mmol/L (22-29); Chloride 97 mmol/L (98-107); Glucose 264 mg/dL (70-105); Potassium 3.5 mmol/L (3.5-5.1); Sodium 131 mmol/L (136-145)
[2025-03-19 06:59] LABS: Platelet Adequacy Comment Platelets Increased; RBC Morphology Within Normal Limits; Smudge Cells 1.9 %
[2025-03-19] MEDS: Insulin Glargine 30 UNITS/0.3 ML VIAL SC SCH (08:59)
[2025-03-19] MEDS: HYDROcodone/Acetaminophen 5/325 mg Tablet PO PRN (09:05)
[2025-03-19] MEDS ORDERED: fentaNYL PF 100 MCG/2 ML SYRINGE ONE ×3 (09:23→13:13)
[2025-03-19] MEDS ORDERED: Ondansetron PF 4 MG/2 ML Vial ONE (09:25)
[2025-03-19] MEDS ORDERED: Lidocaine 1% PF 5 ML VIAL ONE (10:31)
[2025-03-19] MEDS ORDERED: PHENYLEPHRINE-NS 100 MCG/ML 10 ML SYRINGE ONE ×2 (10:35→11:36)
[2025-03-19] MEDS ORDERED: Glycopyrrolate 0.2 MG/ML 5 ML SYRINGE ONE (10:50)
[2025-03-19] MEDS ORDERED: Ketamine In 0.9 % NaCl 50 MG/5 ML SYRINGE ONE (10:51)
[2025-03-19] MEDS ORDERED: HYDROmorphone 0.5 MG/0.5 ML SYRINGE ONE (12:42)
[2025-03-19] MEDS: Vancomycin HCl 1.25 GM in Sodium Chloride 0.9% 250 ML 250 ML IVPB SCH (18:16)
[2025-03-20 08:18] LABS: Anion Gap 16 mmol/L (10-20); BUN (Urea Nitrogen) 13 mg/dL (8.9-20.6); Calc. Creatinine Clearance 352 mL/min (70-130); Calcium 7.9 mg/dL (7.8-10.44); Carbon Dioxide 24 mmol/L (22-29); Chloride 96 mmol/L (98-107); Glucose 256 mg/dL (70-105); Potassium 3.5 mmol/L (3.5-5.1); Sodium 132 mmol/L (136-145)
[2025-03-20 08:19] LABS: Vancomycin, Random 14.3 ug/mL (See Comment)
[2025-03-20] MEDS: Insulin Glargine 30 UNITS/0.3 ML VIAL SC SCH ×2 (08:19→20:00)
[2025-03-20 08:27] LABS: Hematocrit 25.0 % (42.0-52.0); Hemoglobin 7.9 g/dL (14.0-18.0); Mean Corpuscular Hemoglobin 24.9 pg (27.0-31.0); Mean Corpuscular Volume 78.9 fL (78.0-98.0); Platelet Count 561 10x3/uL (130-400); Red Blood Cell (RBC) Count 3.17 mill/uL (4.70-6.10); White Blood Cell (WBC) Count 18.33 10x3/uL (4.8-10.8)
[2025-03-20 10:24] LABS: Platelet Adequacy Comment Platelets Increased; Polychromasia SLIGHT = 2-3 cells HPF (0-2); RBC Morphology Within Normal Limits
[2025-03-21 07:33] LABS: Anion Gap 15 mmol/L (10-20); BUN (Urea Nitrogen) 11 mg/dL (8.9-20.6); Calc. Creatinine Clearance 339 mL/min (70-130); Calcium 7.8 mg/dL (7.8-10.44); Carbon Dioxide 27 mmol/L (22-29); Chloride 96 mmol/L (98-107); Glucose 246 mg/dL (70-105); Potassium 3.3 mmol/L (3.5-5.1); Sodium 135 mmol/L (136-145)
[2025-03-21 08:22] LABS: Platelet Adequacy Comment Platelets Increased; Polychromasia SLIGHT = 2-3 cells HPF (0-2)
[2025-03-21 08:24] LABS: Hematocrit 27.2 % (42.0-52.0); Hemoglobin 8.4 g/dL (14.0-18.0); Mean Corpuscular Hemoglobin 24.5 pg (27.0-31.0); Mean Corpuscular Volume 79.3 fL (78.0-98.0); Platelet Count 618 10x3/uL (130-400); Red Blood Cell (RBC) Count 3.43 mill/uL (4.70-6.10); White Blood Cell (WBC) Count 16.19 10x3/uL (4.8-10.8)
[2025-03-21] MEDS: Losartan 25 MG TAB PO SCH (10:26)
[2025-03-21] MEDS: metFORMIN 500 MG TAB PO SCH (10:27)
[2025-03-21] MEDS ORDERED: Electrolyte Replacement Protocol 1 EACH FS SCH (12:30)
[2025-03-21] MEDS ORDERED: PHOS-NAK 1 PKT PACK PO PRN (12:45)
[2025-03-21] MEDS ORDERED: Potassium Chloride 20 MEQ in Premix 1 BAG IVPB PRN (12:45)
[2025-03-21] MEDS: Gabapentin 300 MG CAP PO SCH (19:58)
[2025-03-22 06:46] LABS: Hematocrit 27.8 % (42.0-52.0); Hemoglobin 8.6 g/dL (14.0-18.0); Mean Corpuscular Hemoglobin 24.7 pg (27.0-31.0); Mean Corpuscular Volume 79.9 fL (78.0-98.0); Platelet Count 703 10x3/uL (130-400); Red Blood Cell (RBC) Count 3.48 mill/uL (4.70-6.10); White Blood Cell (WBC) Count 16.13 10x3/uL (4.8-10.8)
[2025-03-22 06:51] LABS: Vancomycin, Random 16.3 ug/mL (See Comment)
[2025-03-22 06:53] LABS: Anion Gap 15 mmol/L (10-20); BUN (Urea Nitrogen) 9 mg/dL (8.9-20.6); Calc. Creatinine Clearance 359 mL/min (70-130); Calcium 8.0 mg/dL (7.8-10.44); Carbon Dioxide 29 mmol/L (22-29); Chloride 97 mmol/L (98-107); Glucose 233 mg/dL (70-105); Potassium 4.1 mmol/L (3.5-5.1); Sodium 137 mmol/L (136-145)
[2025-03-22 07:28] LABS: Platelet Adequacy Comment Platelets Increased; Poikilocytosis SLIGHT = 6-15 cells HPF (0-5); Polychromasia SLIGHT = 2-3 cells HPF (0-2)
[2025-03-22] MEDS ORDERED: Ondansetron PF 4 MG/2 ML Vial ONE (11:20)
[2025-03-22] MEDS ORDERED: Lidocaine 1% PF 5 ML VIAL ONE (11:20)
[2025-03-22] MEDS ORDERED: fentaNYL PF 100 MCG/2 ML SYRINGE ONE (11:20)
[2025-03-23 06:12] LABS: Anion Gap 15 mmol/L (10-20); BUN (Urea Nitrogen) 10 mg/dL (8.9-20.6); Calc. Creatinine Clearance 367 mL/min (70-130); Calcium 8.2 mg/dL (7.8-10.44); Carbon Dioxide 28 mmol/L (22-29); Chloride 95 mmol/L (98-107); Glucose 233 mg/dL (70-105); Potassium 4.2 mmol/L (3.5-5.1); Sodium 134 mmol/L (136-145)
[2025-03-23 06:25] LABS: Hematocrit 28.7 % (42.0-52.0); Hemoglobin 8.8 g/dL (14.0-18.0); Mean Corpuscular Hemoglobin 24.5 pg (27.0-31.0); Mean Corpuscular Volume 79.9 fL (78.0-98.0); Platelet Count 717 10x3/uL (130-400); Red Blood Cell (RBC) Count 3.59 mill/uL (4.70-6.10); White Blood Cell (WBC) Count 16.96 10x3/uL (4.8-10.8)
[2025-03-23 07:32] LABS: Platelet Adequacy Comment Platelets Increased; Poikilocytosis SLIGHT = 6-15 cells HPF (0-5); Polychromasia SLIGHT = 2-3 cells HPF (0-2)
[2025-03-24] MEDS: Melatonin 3 MG TAB PO PRN (00:17)
[2025-03-24 05:43] LABS: Anion Gap 12 mmol/L (10-20); BUN (Urea Nitrogen) 11 mg/dL (8.9-20.6); Calc. Creatinine Clearance 346 mL/min (70-130); Calcium 8.5 mg/dL (7.8-10.44); Carbon Dioxide 28 mmol/L (22-29); Chloride 96 mmol/L (98-107); Glucose 215 mg/dL (70-105); Potassium 4.2 mmol/L (3.5-5.1); Sodium 132 mmol/L (136-145)
[2025-03-24 05:46] LABS: Hematocrit 28.3 % (42.0-52.0); Hemoglobin 8.6 g/dL (14.0-18.0); Mean Corpuscular Hemoglobin 24.4 pg (27.0-31.0); Mean Corpuscular Volume 80.2 fL (78.0-98.0); Platelet Count 637 10x3/uL (130-400); Red Blood Cell (RBC) Count 3.53 mill/uL (4.70-6.10); White Blood Cell (WBC) Count 14.80 10x3/uL (4.8-10.8)
[2025-03-24 06:12] LABS: Microcytosis SLIGHT = 6-15 cells HPF (0-5); Platelet Adequacy Comment Platelets Increased; Polychromasia SLIGHT = 2-3 cells HPF (0-2); Smudge Cells 9.9 %
[2025-03-24] MEDS: Insulin Glargine 30 UNITS/0.3 ML VIAL SC SCH ×2 (08:34→23:09)
[2025-03-25 05:27] LABS: #Basophils 0.09 10x3/uL (0.0-0.2); #Eosinophils 0.13 10x3/uL (0.0-0.7); #Monocytes 0.82 10x3/uL (0.11-0.59); #Neutrophils 11.37 10x3/uL (1.40-6.50); %Basophils 0.6 % (0.0-1.0); %Eosinophils 0.9 % (0.0-10.0); %Lymphocytes 14.5 % (21.0-51.0); %Monocytes 5.4 % (0.0-10.0); %Neutrophils 74.7 % (42.0-75.0); Hematocrit 30.6 % (42.0-52.0); Hemoglobin 9.4 g/dL (14.0-18.0); Mean Corpuscular Hemoglobin 24.4 pg (27.0-31.0); Mean Corpuscular Volume 79.5 fL (78.0-98.0); Platelet Count 732 10x3/uL (130-400); Red Blood Cell (RBC) Count 3.85 mill/uL (4.70-6.10); White Blood Cell (WBC) Count 15.21 10x3/uL (4.8-10.8)
[2025-03-25 05:43] LABS: Vancomycin, Random 32.5 ug/mL (See Comment)
[2025-03-25 05:44] LABS: Anion Gap 13 mmol/L (10-20); BUN (Urea Nitrogen) 13 mg/dL (8.9-20.6); Calc. Creatinine Clearance 359 mL/min (70-130); Calcium 8.9 mg/dL (7.8-10.44); Carbon Dioxide 27 mmol/L (22-29); Chloride 95 mmol/L (98-107); Glucose 231 mg/dL (70-105); Potassium 4.2 mmol/L (3.5-5.1); Sodium 131 mmol/L (136-145)
[2025-03-25] MEDS ORDERED: fentaNYL PF 100 MCG/2 ML SYRINGE ONE (09:34)
[2025-03-25] MEDS ORDERED: Lidocaine 1% PF 5 ML VIAL ONE (09:34)
[2025-03-25] MEDS ORDERED: Ondansetron PF 4 MG/2 ML Vial ONE (09:48)
[2025-03-26 05:49] LABS: #Basophils 0.05 10x3/uL (0.0-0.2); #Eosinophils 0.03 10x3/uL (0.0-0.7); #Monocytes 1.11 10x3/uL (0.11-0.59); #Neutrophils 14.74 10x3/uL (1.40-6.50); %Basophils 0.3 % (0.0-1.0); %Eosinophils 0.2 % (0.0-10.0); %Lymphocytes 10.5 % (21.0-51.0); %Monocytes 6.1 % (0.0-10.0); %Neutrophils 80.8 % (42.0-75.0); Hematocrit 30.0 % (42.0-52.0); Hemoglobin 9.2 g/dL (14.0-18.0); Mean Corpuscular Hemoglobin 24.3 pg (27.0-31.0); Mean Corpuscular Volume 79.4 fL (78.0-98.0); Platelet Count 742 10x3/uL (130-400); Red Blood Cell (RBC) Count 3.78 mill/uL (4.70-6.10); White Blood Cell (WBC) Count 18.23 10x3/uL (4.8-10.8)
[2025-03-26 05:59] LABS: Anion Gap 13 mmol/L (10-20); BUN (Urea Nitrogen) 25 mg/dL (8.9-20.6); Calc. Creatinine Clearance 310 mL/min (70-130); Calcium 8.9 mg/dL (7.8-10.44); Carbon Dioxide 26 mmol/L (22-29); Chloride 94 mmol/L (98-107); Glucose 268 mg/dL (70-105); Potassium 4.2 mmol/L (3.5-5.1); Sodium 129 mmol/L (136-145)
[2025-03-26] MEDS: Insulin Glargine 30 UNITS/0.3 ML VIAL SC SCH ×2 (08:54→20:32)
[2025-03-27 06:49] LABS: #Basophils 0.09 10x3/uL (0.0-0.2); #Eosinophils 0.10 10x3/uL (0.0-0.7); #Monocytes 0.86 10x3/uL (0.11-0.59); #Neutrophils 9.19 10x3/uL (1.40-6.50); %Basophils 0.7 % (0.0-1.0); %Eosinophils 0.8 % (0.0-10.0); %Lymphocytes 20.1 % (21.0-51.0); %Monocytes 6.5 % (0.0-10.0); %Neutrophils 69.7 % (42.0-75.0); Hematocrit 30.3 % (42.0-52.0); Hemoglobin 9.3 g/dL (14.0-18.0); Mean Corpuscular Hemoglobin 24.2 pg (27.0-31.0); Mean Corpuscular Volume 78.9 fL (78.0-98.0); Platelet Count 649 10x3/uL (130-400); Red Blood Cell (RBC) Count 3.84 mill/uL (4.70-6.10); White Blood Cell (WBC) Count 13.18 10x3/uL (4.8-10.8)
[2025-03-27 07:05] LABS: Anion Gap 14 mmol/L (10-20); BUN (Urea Nitrogen) 19 mg/dL (8.9-20.6); Calc. Creatinine Clearance 285 mL/min (70-130); Calcium 8.6 mg/dL (7.8-10.44); Carbon Dioxide 27 mmol/L (22-29); Chloride 97 mmol/L (98-107); Glucose 186 mg/dL (70-105); Potassium 5.2 mmol/L (3.5-5.1); Sodium 133 mmol/L (136-145)
[2025-03-28 06:44] LABS: #Basophils 0.10 10x3/uL (0.0-0.2); #Eosinophils 0.09 10x3/uL (0.0-0.7); #Monocytes 1.02 10x3/uL (0.11-0.59); #Neutrophils 8.63 10x3/uL (1.40-6.50); %Basophils 0.8 % (0.0-1.0); %Eosinophils 0.7 % (0.0-10.0); %Lymphocytes 18.6 % (21.0-51.0); %Monocytes 8.2 % (0.0-10.0); %Neutrophils 69.4 % (42.0-75.0); Hematocrit 31.2 % (42.0-52.0); Hemoglobin 9.6 g/dL (14.0-18.0); Mean Corpuscular Hemoglobin 24.4 pg (27.0-31.0); Mean Corpuscular Volume 79.2 fL (78.0-98.0); Platelet Count 608 10x3/uL (130-400); Red Blood Cell (RBC) Count 3.94 mill/uL (4.70-6.10); White Blood Cell (WBC) Count 12.45 10x3/uL (4.8-10.8)
[2025-03-28 07:01] LABS: Anion Gap 13 mmol/L (10-20); BUN (Urea Nitrogen) 17 mg/dL (8.9-20.6); Calc. Creatinine Clearance 315 mL/min (70-130); Calcium 9.0 mg/dL (7.8-10.44); Carbon Dioxide 27 mmol/L (22-29); Chloride 95 mmol/L (98-107); Glucose 193 mg/dL (70-105); Potassium 4.3 mmol/L (3.5-5.1); Sodium 131 mmol/L (136-145)
[2025-03-28] MEDS: HYDROcodone/Acetaminophen 10/325 mg Tablet PO PRN (09:39)
[2025-03-28] MEDS: Vancomycin 1.5 GM / NS 500 ML VIAL-2-BAG IVPB SCH (20:26)
[2025-03-29] MEDS ORDERED: Glycopyrrolate 0.2 MG/ML 5 ML SYRINGE ONE (07:18)
[2025-03-29] MEDS ORDERED: Ondansetron PF 4 MG/2 ML Vial ONE (07:18)
[2025-03-29] MEDS ORDERED: PHENYLEPHRINE-NS 100 MCG/ML 10 ML SYRINGE ONE (07:18)
[2025-03-29] MEDS ORDERED: fentaNYL PF 100 MCG/2 ML SYRINGE ONE (07:18)
[2025-03-29] MEDS ORDERED: Rocuronium Bromide 10 MG/ML (10ML VIAL) ONE (07:18)
[2025-03-29] MEDS ORDERED: Lidocaine 1% PF 5 ML VIAL ONE (07:18)
[2025-03-29 12:24] LABS: #Basophils 0.06 10x3/uL (0.0-0.2); #Eosinophils Less than 0.03 10x3/uL (0.0-0.7); #Monocytes 0.27 10x3/uL (0.11-0.59); #Neutrophils 15.55 10x3/uL (1.40-6.50); %Basophils 0.4 % (0.0-1.0); %Eosinophils 0.0 % (0.0-10.0); %Lymphocytes 5.3 % (21.0-51.0); %Monocytes 1.6 % (0.0-10.0); %Neutrophils 91.4 % (42.0-75.0); Hematocrit 31.8 % (42.0-52.0); Hemoglobin 9.8 g/dL (14.0-18.0); Mean Corpuscular Hemoglobin 24.5 pg (27.0-31.0); Mean Corpuscular Volume 79.5 fL (78.0-98.0); Platelet Count 634 10x3/uL (130-400); Red Blood Cell (RBC) Count 4.00 mill/uL (4.70-6.10); White Blood Cell (WBC) Count 17.01 10x3/uL (4.8-10.8)
[2025-03-29 12:44] LABS: Anion Gap 17 mmol/L (10-20); BUN (Urea Nitrogen) 15 mg/dL (8.9-20.6); Calc. Creatinine Clearance 290 mL/min (70-130); Calcium 9.1 mg/dL (7.8-10.44); Carbon Dioxide 25 mmol/L (22-29); Chloride 94 mmol/L (98-107); Glucose 344 mg/dL (70-105); Potassium 4.9 mmol/L (3.5-5.1); Sodium 131 mmol/L (136-145); Vancomycin, Random 30.2 ug/mL (See Comment)
[2025-03-30 05:36] LABS: #Basophils 0.07 10x3/uL (0.0-0.2); #Eosinophils 0.07 10x3/uL (0.0-0.7); #Monocytes 0.84 10x3/uL (0.11-0.59); #Neutrophils 7.98 10x3/uL (1.40-6.50); %Basophils 0.6 % (0.0-1.0); %Eosinophils 0.6 % (0.0-10.0); %Lymphocytes 22.3 % (21.0-51.0); %Monocytes 7.2 % (0.0-10.0); %Neutrophils 68.1 % (42.0-75.0); Hematocrit 30.4 % (42.0-52.0); Hemoglobin 9.3 g/dL (14.0-18.0); Mean Corpuscular Hemoglobin 24.3 pg (27.0-31.0); Mean Corpuscular Volume 79.6 fL (78.0-98.0); Platelet Count 566 10x3/uL (130-400); Red Blood Cell (RBC) Count 3.82 mill/uL (4.70-6.10); White Blood Cell (WBC) Count 11.71 10x3/uL (4.8-10.8)
[2025-03-30 05:50] LABS: Anion Gap 13 mmol/L (10-20); BUN (Urea Nitrogen) 19 mg/dL (8.9-20.6); Calc. Creatinine Clearance 315 mL/min (70-130); Calcium 8.9 mg/dL (7.8-10.44); Carbon Dioxide 26 mmol/L (22-29); Chloride 99 mmol/L (98-107); Glucose 176 mg/dL (70-105); Potassium 4.1 mmol/L (3.5-5.1); Sodium 134 mmol/L (136-145)
[2025-03-30 05:56] LABS: ALT (SGPT) 15 U/L (Less than 45); AST (SGOT) 29 U/L (11-34); Albumin 2.4 g/dL (3.1-4.5); Alkaline Phosphatase 96 U/L (40-110); Bilirubin, Direct 0.2 mg/dL (0.1-0.3); Bilirubin, Total 0.3 mg/dL (0.3-1.2)
[2025-03-31 05:32] LABS: #Basophils 0.13 10x3/uL (0.0-0.2); #Eosinophils 0.10 10x3/uL (0.0-0.7); #Monocytes 1.01 10x3/uL (0.11-0.59); #Neutrophils 6.44 10x3/uL (1.40-6.50); %Basophils 1.3 % (0.0-1.0); %Eosinophils 1.0 % (0.0-10.0); %Lymphocytes 22.2 % (21.0-51.0); %Monocytes 10.1 % (0.0-10.0); %Neutrophils 64.4 % (42.0-75.0); Hematocrit 30.4 % (42.0-52.0); Hemoglobin 9.2 g/dL (14.0-18.0); Mean Corpuscular Hemoglobin 24.2 pg (27.0-31.0); Mean Corpuscular Volume 80.0 fL (78.0-98.0); Platelet Count 520 10x3/uL (130-400); Red Blood Cell (RBC) Count 3.80 mill/uL (4.70-6.10); White Blood Cell (WBC) Count 10.00 10x3/uL (4.8-10.8)
[2025-03-31 05:41] LABS: Anion Gap 16 mmol/L (10-20); BUN (Urea Nitrogen) 15 mg/dL (8.9-20.6); Calc. Creatinine Clearance 321 mL/min (70-130); Calcium 9.2 mg/dL (7.8-10.44); Carbon Dioxide 25 mmol/L (22-29); Chloride 99 mmol/L (98-107); Glucose 132 mg/dL (70-105); Potassium 4.6 mmol/L (3.5-5.1); Sodium 135 mmol/L (136-145)
[2025-04-01] MEDS ORDERED: MERREM IVPB SCH (14:00)
[2025-04-01] MEDS: VANCOMYCIN 1.75 GM/350 ML Premix BAG IVPB SCH (15:33)
[2025-04-02] MEDS: Vancomycin 1 GM in Premix 1 BAG IVPB SCH (00:08)
[2025-04-02 07:14] LABS: Vancomycin, Random 11.4 ug/mL (See Comment)
[2025-04-02] MEDS: Insulin Glargine 30 UNITS/0.3 ML VIAL SC SCH (09:02)
[2025-04-02] MEDS: Ketorolac Tromethamine 30 MG (1 mL) VIAL IVP SCH (11:10)
[2025-04-02] MEDS: Heparin 5,000 UNITS/ML VIAL SC SCH (14:55)
[2025-04-02] MEDS: Gabapentin 400 MG CAP PO SCH (15:45)
[2025-04-02] MEDS: Vancomycin 1.25 GM / NS 250 ML VIAL-2-BAG IVPB SCH (16:31)
[2025-04-03] MEDS: Ketorolac Tromethamine 30 MG (1 mL) VIAL IVP PRN (05:31)
[2025-04-03 06:44] LABS: #Basophils 0.09 10x3/uL (0.0-0.2); #Eosinophils 0.08 10x3/uL (0.0-0.7); #Monocytes 1.18 10x3/uL (0.11-0.59); #Neutrophils 5.77 10x3/uL (1.40-6.50); %Basophils 1.1 % (0.0-1.0); %Eosinophils 0.9 % (0.0-10.0); %Lymphocytes 15.5 % (21.0-51.0); %Monocytes 13.9 % (0.0-10.0); %Neutrophils 67.8 % (42.0-75.0); Hematocrit 28.7 % (42.0-52.0); Hemoglobin 8.8 g/dL (14.0-18.0); Mean Corpuscular Hemoglobin 24.1 pg (27.0-31.0); Mean Corpuscular Volume 78.6 fL (78.0-98.0); Platelet Count 491 10x3/uL (130-400); Red Blood Cell (RBC) Count 3.65 mill/uL (4.70-6.10); White Blood Cell (WBC) Count 8.51 10x3/uL (4.8-10.8)
[2025-04-03 06:59] LABS: Anion Gap 16 mmol/L (10-20); BUN (Urea Nitrogen) 14 mg/dL (8.9-20.6); CRP, High Sensitivity at Bryan 13.32 mg/dL (< or = 0.5); Calc. Creatinine Clearance 352 mL/min (70-130); Calcium 9.0 mg/dL (7.8-10.44); Carbon Dioxide 25 mmol/L (22-29); Chloride 94 mmol/L (98-107); Glucose 157 mg/dL (70-105); Magnesium 1.6 mg/dL (1.6-2.6); Potassium 4.0 mmol/L (3.5-5.1); Sodium 131 mmol/L (136-145)
[2025-04-03 07:05] LABS: Vancomycin, Random 14.5 ug/mL (See Comment)
[2025-04-03] MEDS: Magnesium 2 GM/50 ML(in water) 2 GM in Premix 1 BAG IVPB PRN (08:24)
[2025-04-03] MEDS: Lidocaine 1% (PF) 30 ML VIAL SC SCH (09:43)
[2025-04-03 10:59] LABS: Synovial Fluid, Glucose 57.0 mg/dL (Not Available); Synovial Fluid, Protein 5.8 g/dL (Not Available)
[2025-04-03 13:10] LABS: RBC Count-Automated (BF) 20954 /cu.mm
[2025-04-03 13:12] LABS: WBC/Nucleated-Auto (BF) Greater than 51000 /cu.mm
[2025-04-03 13:20] LABS: BF Segmented Neutrophils 90 %
[2025-04-03 13:21] LABS: Cell Count Non Hematic 2 %
[2025-04-03] MEDS: Heparin 5,000 UNITS/ML VIAL SC SCH (20:57)
[2025-04-04] MEDS ORDERED: Ondansetron PF 4 MG/2 ML Vial ONE (11:17)
[2025-04-04] MEDS ORDERED: fentaNYL PF 100 MCG/2 ML SYRINGE ONE ×2 (11:17→12:03)
[2025-04-04] MEDS ORDERED: Lidocaine 1% PF 5 ML VIAL ONE (11:17)
[2025-04-04] MEDS ORDERED: PHENYLEPHRINE-NS 100 MCG/ML 10 ML SYRINGE ONE (11:51)
[2025-04-04] MEDS: Ketorolac Tromethamine 30 MG (1 mL) VIAL IVP SCH (15:04)
[2025-04-05 07:50] LABS: #Basophils 0.04 10x3/uL (0.0-0.2); #Eosinophils Less than 0.03 10x3/uL (0.0-0.7); #Monocytes 0.87 10x3/uL (0.11-0.59); #Neutrophils 5.07 10x3/uL (1.40-6.50); %Basophils 0.6 % (0.0-1.0); %Eosinophils 0.3 % (0.0-10.0); %Lymphocytes 16.9 % (21.0-51.0); %Monocytes 12.0 % (0.0-10.0); %Neutrophils 69.8 % (42.0-75.0); Hematocrit 27.1 % (42.0-52.0); Hemoglobin 8.3 g/dL (14.0-18.0); Mean Corpuscular Hemoglobin 24.3 pg (27.0-31.0); Mean Corpuscular Volume 79.2 fL (78.0-98.0); Platelet Count 495 10x3/uL (130-400); Red Blood Cell (RBC) Count 3.42 mill/uL (4.70-6.10); White Blood Cell (WBC) Count 7.26 10x3/uL (4.8-10.8)
[2025-04-05 08:12] LABS: Vancomycin, Random 30.0 ug/mL (See Comment)
[2025-04-05 08:13] LABS: Anion Gap 16 mmol/L (10-20); BUN (Urea Nitrogen) 17 mg/dL (8.9-20.6); Calc. Creatinine Clearance 352 mL/min (70-130); Calcium 9.1 mg/dL (7.8-10.44); Carbon Dioxide 25 mmol/L (22-29); Chloride 97 mmol/L (98-107); Glucose 181 mg/dL (70-105); Potassium 4.4 mmol/L (3.5-5.1); Sodium 134 mmol/L (136-145)
[2025-04-06 05:47] LABS: #Basophils 0.11 10x3/uL (0.0-0.2); #Eosinophils 0.13 10x3/uL (0.0-0.7); #Monocytes 0.70 10x3/uL (0.11-0.59); #Neutrophils 4.64 10x3/uL (1.40-6.50); %Basophils 1.4 % (0.0-1.0); %Eosinophils 1.6 % (0.0-10.0); %Lymphocytes 29.7 % (21.0-51.0); %Monocytes 8.7 % (0.0-10.0); %Neutrophils 58.0 % (42.0-75.0); Hematocrit 27.6 % (42.0-52.0); Hemoglobin 8.4 g/dL (14.0-18.0); Mean Corpuscular Hemoglobin 23.9 pg (27.0-31.0); Mean Corpuscular Volume 78.6 fL (78.0-98.0); Platelet Count 476 10x3/uL (130-400); Red Blood Cell (RBC) Count 3.51 mill/uL (4.70-6.10); White Blood Cell (WBC) Count 8.01 10x3/uL (4.8-10.8)
[2025-04-06 06:08] LABS: Vancomycin, Random 25.4 ug/mL (See Comment)
[2025-04-06 06:22] LABS: Anion Gap 11 mmol/L (10-20); BUN (Urea Nitrogen) 16 mg/dL (8.9-20.6); Calc. Creatinine Clearance 352 mL/min (70-130); Calcium 8.9 mg/dL (7.8-10.44); Carbon Dioxide 27 mmol/L (22-29); Chloride 100 mmol/L (98-107); Glucose 114 mg/dL (70-105); Magnesium 1.6 mg/dL (1.6-2.6); Potassium 4.0 mmol/L (3.5-5.1); Sodium 134 mmol/L (136-145)
[2025-04-06] MEDS ORDERED: DC Electrolyte Protocol FS SCH (13:21)
[2025-04-06] MEDS: Magnesium 2 GM/50 ML(in water) 2 GM in Premix 1 BAG IVPB SCH (14:25)
[2025-04-07 06:25] LABS: #Basophils 0.09 10x3/uL (0.0-0.2); #Eosinophils 0.31 10x3/uL (0.0-0.7); #Monocytes 0.81 10x3/uL (0.11-0.59); #Neutrophils 5.71 10x3/uL (1.40-6.50); %Basophils 1.0 % (0.0-1.0); %Eosinophils 3.4 % (0.0-10.0); %Lymphocytes 23.3 % (21.0-51.0); %Monocytes 8.9 % (0.0-10.0); %Neutrophils 62.8 % (42.0-75.0); Hematocrit 28.5 % (42.0-52.0); Hemoglobin 8.5 g/dL (14.0-18.0); Mean Corpuscular Hemoglobin 23.7 pg (27.0-31.0); Mean Corpuscular Volume 79.4 fL (78.0-98.0); Platelet Count 505 10x3/uL (130-400); Red Blood Cell (RBC) Count 3.59 mill/uL (4.70-6.10); White Blood Cell (WBC) Count 9.09 10x3/uL (4.8-10.8)
[2025-04-07 06:38] LABS: Anion Gap 11 mmol/L (10-20); BUN (Urea Nitrogen) 15 mg/dL (8.9-20.6); Calc. Creatinine Clearance 367 mL/min (70-130); Calcium 8.9 mg/dL (7.8-10.44); Carbon Dioxide 28 mmol/L (22-29); Chloride 99 mmol/L (98-107); Glucose 116 mg/dL (70-105); Potassium 3.9 mmol/L (3.5-5.1); Sodium 134 mmol/L (136-145)
[2025-04-07] MEDS: HYDROcodone/Acetaminophen 10/325 mg Tablet PO PRN (11:30)
[2025-04-08 07:32] LABS: #Basophils 0.06 10x3/uL (0.0-0.2); #Eosinophils 0.39 10x3/uL (0.0-0.7); #Monocytes 0.83 10x3/uL (0.11-0.59); #Neutrophils 5.71 10x3/uL (1.40-6.50); %Basophils 0.7 % (0.0-1.0); %Eosinophils 4.4 % (0.0-10.0); %Lymphocytes 21.2 % (21.0-51.0); %Monocytes 9.3 % (0.0-10.0); %Neutrophils 63.8 % (42.0-75.0); Hematocrit 28.7 % (42.0-52.0); Hemoglobin 9.0 g/dL (14.0-18.0); Mean Corpuscular Hemoglobin 24.5 pg (27.0-31.0); Mean Corpuscular Volume 78.0 fL (78.0-98.0); Platelet Count 528 10x3/uL (130-400); Red Blood Cell (RBC) Count 3.68 mill/uL (4.70-6.10); White Blood Cell (WBC) Count 8.93 10x3/uL (4.8-10.8)
[2025-04-08 07:37] LABS: Anion Gap 14 mmol/L (10-20); BUN (Urea Nitrogen) 10 mg/dL (8.9-20.6); Calc. Creatinine Clearance 352 mL/min (70-130); Calcium 9.2 mg/dL (7.8-10.44); Carbon Dioxide 25 mmol/L (22-29); Chloride 98 mmol/L (98-107); Glucose 123 mg/dL (70-105); Potassium 4.1 mmol/L (3.5-5.1); Sodium 133 mmol/L (136-145)
[2025-04-09 05:42] LABS: Calc. Creatinine Clearance 359.0 mL/min (70-130)
[2025-04-09 05:43] LABS: Vancomycin, Random 23.4 ug/mL (See Comment)
[2025-04-09] MEDS: Lidocaine 1% w/Epinephrine 1:100K 20 ML VIAL IJ SCH (14:38)
[2025-04-09] MEDS: Lidocaine 1% (PF) 30 ML VIAL SC SCH (14:38)
[2025-04-11] MEDS: DULoxetine 30 MG CAP PO SCH (11:48)
[2025-04-11] MEDS ORDERED: HYDROcodone/Acetaminophen 10/325 mg Tablet PO PRN ×2 (15:05)
[2025-04-12] MEDS: HYDROcodone/Acetaminophen 10/325 mg Tablet PO PRN (00:45)
[2025-04-12] MEDS: DULoxetine 30 MG CAP PO SCH (09:10)
[2025-04-12] MEDS: Cyclobenzaprine 10 MG TAB PO PRN (18:29)
[2025-04-14 05:43] LABS: Vancomycin, Random 18.1 ug/mL (See Comment)
[2025-04-14 05:44] LABS: Calc. Creatinine Clearance 310.0 mL/min (70-130)
[2025-04-14] MEDS ORDERED: Acetaminophen 325 MG TAB PO PRN (08:06)
[2025-04-15 06:55] LABS: #Basophils 0.11 10x3/uL (0.0-0.2); #Eosinophils 0.49 10x3/uL (0.0-0.7); #Monocytes 0.87 10x3/uL (0.11-0.59); #Neutrophils 5.06 10x3/uL (1.40-6.50); %Basophils 1.3 % (0.0-1.0); %Eosinophils 5.9 % (0.0-10.0); %Lymphocytes 20.6 % (21.0-51.0); %Monocytes 10.5 % (0.0-10.0); %Neutrophils 60.7 % (42.0-75.0); Hematocrit 25.8 % (42.0-52.0); Hemoglobin 7.9 g/dL (14.0-18.0); Mean Corpuscular Hemoglobin 23.5 pg (27.0-31.0); Mean Corpuscular Volume 76.8 fL (78.0-98.0); Platelet Count 594 10x3/uL (130-400); Red Blood Cell (RBC) Count 3.36 mill/uL (4.70-6.10); White Blood Cell (WBC) Count 8.32 10x3/uL (4.8-10.8)
[2025-04-15 06:56] LABS: Hematocrit 25.5 % (42.0-52.0); Hemoglobin 7.7 g/dL (14.0-18.0); Mean Corpuscular Hemoglobin 23.4 pg (27.0-31.0); Mean Corpuscular Volume 77.5 fL (78.0-98.0); Platelet Count 584 10x3/uL (130-400); Red Blood Cell (RBC) Count 3.29 mill/uL (4.70-6.10); White Blood Cell (WBC) Count 8.56 10x3/uL (4.8-10.8)
[2025-04-15 06:59] LABS: Anion Gap 8 mmol/L (10-20); BUN (Urea Nitrogen) 16 mg/dL (8.9-20.6); Calc. Creatinine Clearance 374 mL/min (70-130); Calcium 9.2 mg/dL (7.8-10.44); Carbon Dioxide 27 mmol/L (22-29); Chloride 95 mmol/L (98-107); Glucose 147 mg/dL (70-105); Potassium 4.0 mmol/L (3.5-5.1); Sodium 126 mmol/L (136-145)
[2025-04-15] MEDS ORDERED: Ondansetron PF 4 MG/2 ML Vial ONE (10:20)
[2025-04-15] MEDS ORDERED: SUGAMMADEX SODIUM 200 MG/2 ML VIAL ONE (10:40)
[2025-04-15] MEDS ORDERED: fentaNYL PF 100 MCG/2 ML SYRINGE ONE (11:06)
[2025-04-15] MEDS ORDERED: HYDROmorphone 0.5 MG/0.5 ML SYRINGE ONE (11:31)
[2025-04-15 11:32] LABS: RBC Count-Automated (BF) 2281 /cu.mm; WBC/Nucleated-Auto (BF) 544 /cu.mm
[2025-04-15 12:11] LABS: BF Segmented Neutrophils 79 %; Cell Count Non Hematic 21 %
[2025-04-16 06:58] LABS: Hematocrit 26.4 % (42.0-52.0); Hemoglobin 7.9 g/dL (14.0-18.0); Mean Corpuscular Hemoglobin 23.1 pg (27.0-31.0); Mean Corpuscular Volume 77.2 fL (78.0-98.0); Platelet Count 610 10x3/uL (130-400); Red Blood Cell (RBC) Count 3.42 mill/uL (4.70-6.10); White Blood Cell (WBC) Count 8.43 10x3/uL (4.8-10.8)
[2025-04-16 07:24] LABS: Anion Gap 10 mmol/L (10-20); BUN (Urea Nitrogen) 12 mg/dL (8.9-20.6); Calc. Creatinine Clearance 346 mL/min (70-130); Calcium 9.4 mg/dL (7.8-10.44); Carbon Dioxide 29 mmol/L (22-29); Chloride 96 mmol/L (98-107); Glucose 171 mg/dL (70-105); Potassium 4.0 mmol/L (3.5-5.1); Sodium 131 mmol/L (136-145)
[2025-04-16] MEDS ORDERED: Sodium Bicarbonate 2.5 MEQ/5 ML SDV ONE (13:07)
[2025-04-16] MEDS ORDERED: Lidocaine 1% PF 5 ML VIAL ONE (13:07)
[2025-04-19 07:42] LABS: Hematocrit 29.7 % (42.0-52.0); Hemoglobin 8.9 g/dL (14.0-18.0); Mean Corpuscular Hemoglobin 23.3 pg (27.0-31.0); Mean Corpuscular Volume 77.7 fL (78.0-98.0); Platelet Count 582 10x3/uL (130-400); Red Blood Cell (RBC) Count 3.82 mill/uL (4.70-6.10); White Blood Cell (WBC) Count 7.37 10x3/uL (4.8-10.8)
[2025-04-19 07:55] LABS: Vancomycin, Random 15.6 ug/mL (See Comment)
[2025-04-19 07:56] LABS: Anion Gap 16 mmol/L (10-20); BUN (Urea Nitrogen) 13 mg/dL (8.9-20.6); Calc. Creatinine Clearance 359 mL/min (70-130); Calcium 9.5 mg/dL (7.8-10.44); Carbon Dioxide 25 mmol/L (22-29); Chloride 98 mmol/L (98-107); Glucose 126 mg/dL (70-105); Potassium 4.1 mmol/L (3.5-5.1); Sodium 135 mmol/L (136-145)
[2025-04-19] MEDS: VANCOMYCIN 1.75 GM/350 ML Premix BAG IVPB SCH (12:02)
[2025-04-19 14:48] VITALS: BP 133/80; TEMP 97.7
== END 2025-04-19 15:09 | disposition home or self-care (01) | DRG 616 ==
LOC: ERS 14:27 → ERHOLD 15:14 → T4-B 17:20
PROVIDERS: ADMIT Internal Medicine; ATTEND Internal Medicine
PROC: 3E03329 Introduction of Other Anti-infective into Peripheral Vein, Percutaneous Approach (ICD-10-PCS; 2025-03-16)
PROC: 0L9W0ZZ Drainage of Left Foot Tendon, Open Approach (ICD-10-PCS; principal; 2025-03-17)
PROC: 0L9V0ZZ Drainage of Right Foot Tendon, Open Approach (ICD-10-PCS; 2025-03-17)
PROC: 30233J1 Transfusion of Nonautologous Serum Albumin into Peripheral Vein, Percutaneous Approach (ICD-10-PCS; 2025-03-17)
PROC: 0Y6G0ZZ Detachment at Left Knee Region, Open Approach (ICD-10-PCS; 2025-03-19)
PROC: 0JBQ0ZZ Excision of Right Foot Subcutaneous Tissue and Fascia, Open Approach (ICD-10-PCS; 2025-03-19)
PROC: 0J9R0ZZ Drainage of Left Foot Subcutaneous Tissue and Fascia, Open Approach (ICD-10-PCS; 2025-03-22)
PROC: 0J9Q0ZZ Drainage of Right Foot Subcutaneous Tissue and Fascia, Open Approach (ICD-10-PCS; 2025-03-25)
PROC: 0K9V0ZZ Drainage of Right Foot Muscle, Open Approach (ICD-10-PCS; 2025-03-29)
PROC: 0S9D3ZZ Drainage of Left Knee Joint, Percutaneous Approach (ICD-10-PCS; 2025-04-03)
PROC: 0Y6G0ZZ Detachment at Left Knee Region, Open Approach (ICD-10-PCS; 2025-04-04)
PROC: 05HY33Z Insertion of Infusion Device into Upper Vein, Percutaneous Approach (ICD-10-PCS; 2025-04-07)
PROC: 0S9D3ZZ Drainage of Left Knee Joint, Percutaneous Approach (ICD-10-PCS; 2025-04-09)
PROC: 0S9D0ZZ Drainage of Left Knee Joint, Open Approach (ICD-10-PCS; 2025-04-15)
PROC: 05HY33Z Insertion of Infusion Device into Upper Vein, Percutaneous Approach (ICD-10-PCS; 2025-04-16)
DX: E11.69 Type 2 diabetes mellitus with other specified complication (principal); M72.6 Necrotizing fasciitis; E11.52 Type 2 diabetes mellitus with diabetic peripheral angiopathy with gangrene; M86.171 Other acute osteomyelitis, right ankle and foot; E87.1 Hypo-osmolality and hyponatremia; F41.9 Anxiety disorder, unspecified; M10.9 Gout, unspecified; Z89.429 Acquired absence of other toe(s), unspecified side; E11.621 Type 2 diabetes mellitus with foot ulcer; I10 Essential (primary) hypertension; Z79.4 Long term (current) use of insulin; E87.6 Hypokalemia; D75.839 Thrombocytosis, unspecified; E87.5 Hyperkalemia; E66.01 Morbid (severe) obesity due to excess calories; Z68.37 Body mass index [BMI] 37.0-37.9, adult; E83.42 Hypomagnesemia; M25.562 Pain in left knee; E11.65 Type 2 diabetes mellitus with hyperglycemia; F32.A Depression, unspecified; D64.9 Anemia, unspecified; Z79.84 Long term (current) use of oral hypoglycemic drugs
CPT/HCPCS: 36415; 36416; 36573; 80048; 80053; 80076; 80202; 82565; 82945; 83036; 83605; 83735; 84157; 85025; 85027; 85060; 86141; 86850; 86900; 86901; 87070; 87076; 87077; 87186; 87205; 88307; 88311; 89051; 89060; 97139; 99285; C1751; J0692; J1100; J1171; J1644; J1650; J1815; J1885; J2003; J2185; J2250; J2270; J2272; J2405; J2550; J2704; J3010; J3373; J3375; J3475; J3490; J7030; J7050; P9047